=== PATIENT | male | born 1965 | race Caucasian/White ===

== ENCOUNTER 2016-08-18 23:10 | Emergency (ER) | payer MEDICARE ==
[~2016-08-18] VITALS: Ht 167.6 cm; Wt 67.0 kg
[~2016-08-18 23:10] MED LIST: IBUP600T26 PO; ROBA750T3 PO
[2016-08-18 23:15] VITALS: BP 144/85; PULSE 89; RESP 18; TEMP 98.2; O2SAT 99
[2016-08-18 23:25] VITALS: BP 133/85; PULSE 88; RESP 18
[2016-08-18] MEDS ORDERED: FLUTI110I INH (23:45)
[2016-08-18] MEDS ORDERED: VENTAER INH (23:45)
[2016-08-19] MEDS ORDERED: MOBI15TA PO (00:08)
[2016-08-19] MEDS ORDERED: ZOFR4TAB3 SL (00:08)
[2016-08-19] MEDS ORDERED: HYDR-3533 PO (00:08)
--- NOTE | 2016-08-19 00:11 | PD ---
HPI Chief Complaint: Musculoskeletal Complaint Time Seen by Provider: 23:43 Travel History International Travel<30 days: No Contact w/Intl Traveler<30days: No Traveled to known affect area: No History of Present Illness HPI The patient is a 50-year-old male that injured his shoulder several months ago. He has seen orthopedic physicians and has had an MRI that showed no rotator cuff tear and has been injected locally with steroids without relief. The patient comes in because he aggravated his shoulder changing a tire 4 days ago and continues to complain of pain in the right shoulder. The patient is disabled, he has Gaucher's disease. He takes Motrin but only 600 mg twice daily. He is starting to get nauseated and he thinks that might be the Motrin. 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) Cirrhosis: Yes Cerebrovascular Accident: Yes (2004) Tetanus Vaccination: < 5 Years Influenza Vaccination: No Past Surgical History Other Surgery: Yes (Splenectomy, carpal tunnel, fasciotomy, ulnar nerve "moved ", LH sx) Social History Alcohol Use: Yes (occassional) Tobacco Use: Yes (1 pack every 3 days) Substance Use: No Allergies-Medications (Allergen,Severity, Reaction): Coded Allergies: Aspirin (Verified Allergy, Severe, Bleeding, 08/18/16) Reported Meds & Prescriptions Reported Meds & Active Scripts Active Reported Flovent Hfa 12 GM Inh (Fluticasone Propionate) 110 Mcg/Act Inh 1 Puff INH BID Ventolin Hfa 18 GM Inh (Albuterol Sulfate) 90 Mcg/Act Aer 2 Puff INH Q4-6H PRN Review of Systems Except as stated in HPI: all other systems reviewed are Neg Physical Exam Narrative GENERAL: Well-nourished, well-developed patient. His vital signs show blood pressure 144/85 but otherwise normal. He smells of tobacco. SKIN: Focused skin assessment warm/dry. HEAD: Normocephalic. EYES: No scleral icterus. No injection or drainage. There are no yellow fatty deposits in his sclera. NECK: Supple, trachea midline. No JVD or lymphadenopathy. CARDIOVASCULAR: Regular rate and rhythm without murmurs, gallops, or rubs. RESPIRATORY: Breath sounds equal bilaterally. No accessory muscle use. GASTROINTESTINAL: Abdomen soft, non-tender, nondistended. MUSCULOSKELETAL: No cyanosis, or edema. There is tenderness over the anterior shoulder as well as lateral shoulder. He can abduct his shoulder to 80 and is limited thereafter by pain. There is no erythema over the shoulder. BACK: Nontender without obvious deformity. No CVA tenderness. Data Data Last Documented VS Vital Signs Date Time Temp Pulse Resp B/P Pulse Ox O2 Delivery O2 Flow Rate FiO2 08/18/16 23:25 88 18 133/85 08/18/16 23:15 98.2 99 MDM Medical Decision Making Medical Screen Exam Complete: Yes Emergency Medical Condition: Yes Medical Record Reviewed: Yes Differential Diagnosis Rotator cuff tearunlikely, bursitis, arthrosis right shoulder Narrative Course The patient likely has bursitis of the right shoulder. He is already been injected. He is not taking the Motrin as often as he should, possibly because of side effects of nausea. Plan: The patient will be given prescription for [place], Zofran and he is to rest the right shoulder. He is also given a prescription for Lortab 5 No. 20. His pain is becoming chronic pain and the number of Lortabs have to be limited. Diagnosis Primary Impression: Bursitis of right shoulder Additional Instructions: The Motrin may be making you nauseated. For this reason I will switch to Mobic 15 mg daily. Also, the Zofran is every 6 hours by mouth or under the tongue for nausea. Follow-up with orthopedics. Rest the right shoulder is much as possible. Also, discontinue smoking completely. Med/Other Pt SpecificInfo: Prescription(s) given Scripts Ondansetron Odt (Zofran Odt)4 Mg Tab4 Mg SL Q6HR PRN (Nausea/Vomiting) #30 TAB Ref 0 Prov:Cecilio Reagan MD 08/19/16 Hydrocodone-Acetaminophen (Lortab)5-325 Mg Tab1 Tab PO Q6H PRN (PAIN) #20 TAB Ref 0 Prov:Cecilio Reagan MD 08/19/16 Meloxicam (Mobic)15 Mg Tab15 Mg PO DAILY #30 TAB Ref 0 Prov:Cecilio Reagan MD 08/19/16 Disposition: 01 DISCHARGE HOME Condition: Stable Cecilio Reagan MD August 19, 2016 00:11
[2016-08-19] MEDS ORDERED: KETOROLAC TROMETHAMINE 60 MG/2 ML (IM) VIAL IM ONE (00:15)
== END 2016-08-19 00:31 | disposition home or self-care (01) ==
LOC: PHED 23:10
DX: M75.51 Bursitis of right shoulder (principal); K74.60 Unspecified cirrhosis of liver; F17.210 Nicotine dependence, cigarettes, uncomplicated; Z86.73 Personal history of transient ischemic attack (TIA), and cerebral infarction without residual deficits
CPT/HCPCS: 96372; 99283; J1885

== ENCOUNTER 2017-01-22 23:01 | Emergency (ER) | payer MEDICARE ==
[~2017-01-22] VITALS: Ht 170.2 cm; Wt 64.2 kg
[~2017-01-22 23:01] MED LIST changes: +FLUTI110I INH; +HYDR-3533 PO; -IBUP600T26 PO; +MOBI15TA PO; -ROBA750T3 PO; +VENTAER INH; +ZOFR4TAB3 SL
[2017-01-22 23:06] VITALS: BP 167/81; PULSE 96; RESP 16; TEMP 98.4; O2SAT 99
[2017-01-22] MEDS ORDERED: NORC5TAB PO (23:28)
[2017-01-22] MEDS ORDERED: IBUP400T20 PO (23:28)
--- NOTE | 2017-01-22 23:28 | PD ---
HPI Chief Complaint: Injury Time Seen by Provider: 23:12 Travel History International Travel<30 days: No Contact w/Intl Traveler<30days: No Traveled to known affect area: No History of Present Illness HPI the patient is a 51 year-old male who presents to the emergency department for right shoulder pain. The patient has a 1-2 year history of right shoulder pain and was followed by his orthopedic surgeon in [place]. However, the patient recently moved from [place] to the local area does not have a primary physician or orthopedic surgeon in the area. The patient states he has had a previous x-rays and MRI of the shoulder and was receiving cortisone injections by his orthopedic surgeon with minimal relief. The patient was also undergoing physical therapy, however, felt to physical therapy was worsening his symptoms. The patient states while he was coming to [place] he fell forward and grabbed his arm on a door. The patient states there was a pop and then he felt a pop "back". The pain is located over the right shoulder , worse with certain types of movement, but does not radiate down the arm. He denies any numbness or tingling of the right upper extremity. He is right-hand dominant. Symptoms are moderate, worse with movement, slightly alleviated at rest. 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) Cirrhosis: Yes Cerebrovascular Accident: Yes (2004) Past Surgical History Other Surgery: Yes (Splenectomy, carpal tunnel, fasciotomy, ulnar nerve "moved ", LH sx) Social History Alcohol Use: Yes (occassional) Tobacco Use: Yes (1 pack every 3 days) Substance Use: No Allergies-Medications (Allergen,Severity, Reaction): Coded Allergies: aspirin (Unverified Allergy, Severe, Bleeding, 11/20/16) Reported Meds & Prescriptions Reported Meds & Active Scripts Active Ibuprofen 400 Mg Tab 400 Mg PO Q6H PRN [place] (Hydrocodone-Acetaminophen) 5-325 mg Tab 1 Tab PO Q6H PRN Lortab (Hydrocodone-Acetaminophen) 5-325 Mg Tab 1 Tab PO Q6H PRN Mobic (Meloxicam) 15 Mg Tab 15 Mg PO DAILY Reported Flovent Hfa 12 GM Inh (Fluticasone Propionate) 110 Mcg/Act Inh 1 Puff INH BID Ventolin Hfa 18 GM Inh (Albuterol Sulfate) 90 Mcg/Act Aer 2 Puff INH Q4-6H PRN Review of Systems HENT: No: Neck Pain Musculoskeletal: Positive: Limited ROM, Edema (states that the right shoulder. Swollen when compared to the left), Pain Skin: No Rash Neurologic: No: Paresthesia, Sensory Disturbance Physical Exam Narrative GENERAL: Awake, alert, pleasant 51-year-old male who appears his stated age and is in no acute respiratory distress. SKIN: Focused skin assessment warm/dry. HEAD: Atraumatic. Normocephalic. NECK: Trachea midline. No JVD. No tenderness of the cervical vertebrae or paravertebral muscles. MUSCULOSKELETAL: No obvious deformities. The right shoulder has no obvious edema or swelling with compared to the left. No tenderness of the clavicles bilaterally, however, patient has tenderness of the right before meals joint as well as the anterior and posterior aspect just inferior to the before meals joint. Patient is able to abduct the right shoulder to 90 as well as extend the right arm and ended degrees, however, is able to raise his right arm above his head. He is able to fully flex and extend the right elbow as well as supinate and pronate the right forearm. Intrinsic hand muscles on the right are intact. Positive right radial pulse. NEUROLOGICAL: Awake and alert. No obvious cranial nerve deficits. Motor grossly within normal limits. Normal speech. Sensation is intact to the radial , median, and ulnar distribution of the right upper extremity. PSYCHIATRIC: Appropriate mood and affect; insight and judgment normal. Data Data Last Documented VS Vital Signs Date Time Temp Pulse Resp B/P (MAP) Pulse Ox O2 Delivery O2 Flow Rate FiO2 01/22/17 23:31 Room Air 01/22/17 23:06 98.4 96 16 167/81 (109) 99 Orders Orders Shoulder, Limited(2vws) (01/22/17 ) Ibuprofen (Advil) (01/22/17 23:30) Acetamin-Hydrocod 325-5 Mg ([place] 5-325 (01/22/17 23:30) MDM Medical Decision Making Medical Screen Exam Complete: Yes Emergency Medical Condition: Yes Medical Record Reviewed: Yes Interpretation(s) X-ray of the right shoulder reveals negative examination of the shoulder. Differential Diagnosis Differential diagnosis includes bursitis, AC joint separation, osteoarthritis, dislocation, fracture, contusion, hematoma, neuropathy. Narrative Course X-ray 2 view of the right shoulder was obtained. The patient was administered ibuprofen 400 mg orally and [place] 5 mg/325 mg orally for pain. X-rays unremarkable. The patient was advised to follow-up with orthopedics as he may benefit from continuing cortisone injections and/or physical therapy. He will be prescribed ibuprofen and a small course of [place], however, he is advised to follow-up with orthopedics or chronic pain management for continuing pain management. Diagnosis Primary Impression: Right shoulder pain Qualified Codes: M25.511 - Pain in right shoulder; G89.29 - Other chronic pain Referrals: Thanh Lee MD as needed Patient Instructions: General Instructions Additional Instructions: Medications as directed. Please provide the patient a copy of his x-ray results at discharge. Follow-up with orthopedics. He may benefit from outpatient cortisone injections and/or physical therapy. Activity as tolerated. Med/Other Pt SpecificInfo: Prescription(s) given Scripts Ibuprofen (Ibuprofen) 400 Mg Tab 400 MG PO Q6H Y for PAIN SCALE 1 TO 10, #20 TAB 0 Refills Prov: Andrew Cotter MD 01/22/17 Hydrocodone-Acetaminophen ([place]) 5-325 mg Tab 1 TAB PO Q6H Y for PAIN, #15 TAB 0 Refills Prov: Andrew Cotter MD 01/22/17 Disposition: 01 DISCHARGE HOME Condition: Stable Andrew Cotter MD Jan 22, 2017 23:28
[2017-01-22] MEDS ORDERED: IBUPROFEN 200 MG TAB PO ONE (23:30)
[2017-01-22] MEDS ORDERED: ACETAMINOPHEN/HYDROcodone 325 MG/5 MG TAB PO ONE (23:30)
--- NOTE | 2017-01-22 23:40 | RADRPT ---
EXAM DATE/TIME: 01/22/2017 23:26 [facility] COMPARISON: No previous studies available for comparison. INDICATIONS : Right shoulder pain from unknown injury. MEDICAL HISTORY : None. SURGICAL HISTORY : None. ENCOUNTER: Initial ACUITY: 1 day PAIN SCORE: 6/10 LOCATION: Right proximal shoulder. FINDINGS: Two view examination of the right shoulder demonstrates no evidence of fracture or dislocation. The glenohumeral and acromioclavicular joints are maintained. Bony mineralization is normal. CONCLUSION: 1. Negative examination of the shoulder. Shaji Arriaga MD on January 22, 2017 at 23:39 Board Certified Radiologist. This report was verified electronically.
[2017-01-23 00:10] VITALS: BP 150/70
== END 2017-01-23 00:14 | disposition home or self-care (01) ==
LOC: PHED 23:01
DX: M25.511 Pain in right shoulder (principal); K74.60 Unspecified cirrhosis of liver; Z86.73 Personal history of transient ischemic attack (TIA), and cerebral infarction without residual deficits; F17.200 Nicotine dependence, unspecified, uncomplicated; Z79.899 Other long term (current) drug therapy
CPT/HCPCS: 73030; 99283

== ENCOUNTER 2017-02-17 20:39 | Inpatient (IN) | payer MEDICARE ==
[~2017-02-17] VITALS: Ht 170.2 cm; Wt 63.0 kg
[~2017-02-17 20:39] MED LIST changes: +IBUP1TAB5 PO; +NORC5TAB PO; -ZOFR4TAB3 SL
[2017-02-17 20:49] VITALS: BP 140/65; PULSE 76; RESP 18; TEMP 98.1; O2SAT 100
[2017-02-17] MEDS ORDERED: SODIUM CHLOR 0.9% 1000 ML INJ 1,000 ML IV SCH (20:57)
[2017-02-17] MEDS ORDERED: SODIUM CHLORIDE 0.9% FLUSH 5 ML FLUSH IV FLUSH PRN (21:00)
[2017-02-17 21:03] VITALS: O2SAT 97
--- NOTE | 2017-02-17 21:04 | PD ---
HPI Chief Complaint: Altered Mental Status Time Seen by Provider: 20:46 Travel History International Travel<30 days: No Contact w/Intl Traveler<30days: No Traveled to known affect area: No History of Present Illness HPI The patient is a 51 year old male who presents to the [facility] emergency department with a history of altered mentation, noted by family members to be walking around the house undressed. According to ambulance services the patient has been altered since this morning. The patient reports that he did fall and hit his head. He is unsure whether he lost consciousness. He reports that he tripped and that is what caused the fall. The patient is oriented to person, place, time, and situation. The patient denies having any pain. The patient is drowsy on arrival. The patient's history is limited based on his drowsiness. The patient's electronic medical record was reviewed for his history. The patient denies having any chest pain, chest pressure, or shortness of breath. He denies having any neck pain. He denies having any vomiting or diarrhea. He denies drinking any alcohol. He reports that he smokes marijuana occasionally, however he denies smoking today. [facility] Past Medical History Narrative Medical The patient's past medical history according to the electronic medical record consists of arthritis, history of cirrhosis, according to the electronic medical record a prior history of stroke. 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 Eye Surgery: Yes (LEFT EYE SURGERY) Other Surgery: Yes (Splenectomy, carpal tunnel, fasciotomy, ulnar nerve "moved ", LH sx) Social History Alcohol Use: No Tobacco Use: Yes (one pack per day) Substance Use: Yes (marijuana occasionally) Allergies-Medications (Allergen,Severity, Reaction): Coded Allergies: aspirin (Unverified Allergy, Severe, Bleeding, 02/17/17) Reported Meds & Prescriptions Reported Meds & Active Scripts Active Ibuprofen 400 Mg Tab 400 Mg PO Q6H PRN [place] (Hydrocodone-Acetaminophen) 5-325 mg Tab 1 Tab PO Q6H PRN Mobic (Meloxicam) 15 Mg Tab 15 Mg PO DAILY Reported Flovent Hfa 12 GM Inh (Fluticasone Propionate) 110 Mcg/Act Inh 1 Puff INH BID Ventolin Hfa 18 GM Inh (Albuterol Sulfate) 90 Mcg/Act Aer 2 Puff INH Q4-6H PRN Review of Systems Except as stated in HPI: all other systems reviewed are Neg General / Constitutional: No: Fever Eyes: No: Visual changes HENT: No: Headaches, Neck Stiffness, Neck Pain Cardiovascular: No: Chest Pain or Discomfort Respiratory: No: Shortness of Breath Gastrointestinal: No: Nausea, Vomiting, Diarrhea, Abdominal Pain Genitourinary: No: Dysuria Musculoskeletal: No: Pain Skin: No Rash Neurologic: Positive: Change in Mentation, No: Weakness, Focal Abnormalities, Headache, Slurred Speech, Sensory Disturbance Psychiatric: No: Depression Endocrine: No: Polydipsia Hematologic/Lymphatic: No: Easy Bruising Physical Exam Narrative General: The patient is a well-developed well-nourished male in no acute distress. Head and Neck exam: Head is normocephalic atraumatic. Eyes: EOMI, pupils are equal round and reactive to light. Nose: Midline septum with pink mucous membranes Mouth: Dentition unremarkable. Moist mucus membranes. Posterior oropharynx is not erythematous. No tonsillar hypertrophy. Uvula midline. Airway patent. Neck: No palpable lymphadenopathy. No nuchal rigidity. No thyromegaly. Cardiovascular: Regular rate and rhythm without murmurs, gallops, or rubs. Lungs: Clear to auscultation bilaterally. No wheezes, rhonchi, or rales. Abdomen: Soft, with tenderness on palpation along the left side of the abdomen, left lower quadrant, no other tenderness on palpation of the other quadrants of the abdomen. No guarding, rebound, or rigidity. Normal bowel sounds are audible. No tenderness on palpation of McBurney's point. Negative Melissa sign. Extremities: No clubbing, cyanosis, or edema. 2+ pulses in all 4 extremities. No calf tenderness on palpation. Back: No spinous process tenderness to palpation. No costovertebral angle tenderness to palpation. Neurologic Exam: Cranial nerves 2-12 were intact on exam. Strength is 5/5 in all 4 extremities. No sensory deficits noted. Drowsy on examination. The patient is however arousable and oriented to person, place, time, and situation. No tremulousness. No asterixis. Skin Exam: No rash noted. Intact skin that is warm and dry. Data Data Last Documented VS Vital Signs Date Time Temp Pulse Resp B/P (MAP) Pulse Ox O2 Delivery O2 Flow Rate FiO2 02/17/17 21:03 97 Room Air 02/17/17 20:53 72 18 02/17/17 20:49 98.1 140/65 (90) Orders Orders Electrocardiogram (02/17/17 20:57) Ammonia (02/17/17 20:57) Complete Blood Count With Diff (02/17/17 20:57) Comprehensive Metabolic Panel (02/17/17 20:57) Creatine Kinase (Cpk) (02/17/17 20:57) Prothrombin Time / Inr (Pt) (02/17/17 20:57) Act Partial Throm Time (Ptt) (02/17/17 20:57) Troponin I (02/17/17 20:57) Thyroid Stimulating Hormone (02/17/17 20:57) Urinalysis - C+S If Indicated (02/17/17 20:57) Chest, Single Ap (02/17/17 20:57) Ct Brain W/O Iv Contrast(Rout) (02/17/17 20:57) Blood Glucose (02/17/17 20:57) Ecg Monitoring (02/17/17 20:57) Iv Access Insert/Monitor (02/17/17 20:57) Oximetry (02/17/17 20:57) Sodium Chloride 0.9% Flush (Ns Flush) (02/17/17 21:00) Sodium Chlor 0.9% 1000 Ml Inj (Ns 1000 M (02/17/17 20:57) Drug Screen, Random Urine (02/17/17 20:57) Alcohol (Ethanol) (02/17/17 20:57) Tylenol (Acetaminophen) (02/17/17 20:57) Salicylates (Aspirin) (02/17/17 20:57) Ct Cerv Spine W/O Contrast (02/17/17 ) Ct Abd/Pel W Iv Contrast(Rout) (02/17/17 21:04) Iohexol 350 Inj (Omnipaque 350 Inj) (02/17/17 23:00) Admit Order (Ed Use Only) (02/17/17 23:10) Labs Laboratory Tests Test 02/17/17 21:35 02/17/17 21:53 Blood Urea Nitrogen 15 MG/DL Creatinine 0.71 MG/DL Random Glucose 76 MG/DL Total Protein 7.9 GM/DL Albumin 2.7 GM/DL Calcium Level 8.5 MG/DL Alkaline Phosphatase 109 U/L Aspartate Amino Transf (AST/SGOT) 84 U/L Alanine Aminotransferase (ALT/SGPT) 50 U/L Total Bilirubin 2.2 MG/DL Sodium Level 139 MEQ/L Potassium Level 4.1 MEQ/L Chloride Level 110 MEQ/L Carbon Dioxide Level 20.8 MEQ/L Anion Gap 8 MEQ/L Estimat Glomerular Filtration Rate 118 ML/MIN Ammonia 92 MCMOL/L Total Creatine Kinase 142 U/L Troponin I LESS THAN 0.02 NG/ML Thyroid Stimulating Hormone 3rd Gen 1.160 uIU/ML Salicylates Level LESS THAN 1.7 MG/DL Acetaminophen Level LESS THAN 2.0 MCG/ML Ethyl Alcohol Level LESS THAN 3 MG/DL White Blood Count 9.1 TH/MM3 Red Blood Count 2.87 MIL/MM3 Hemoglobin 11.7 GM/DL Hematocrit 32.7 % Mean Corpuscular Volume 113.8 FL Mean Corpuscular Hemoglobin 40.7 PG Mean Corpuscular Hemoglobin Concent 35.8 % Red Cell Distribution Width 21.2 % Platelet Count 147 TH/MM3 Mean Platelet Volume 12.4 FL Neutrophils (%) (Auto) 36.1 % Lymphocytes (%) (Auto) 51.5 % Monocytes (%) (Auto) 8.9 % Eosinophils (%) (Auto) 1.4 % Basophils (%) (Auto) 2.1 % Neutrophils # (Auto) 3.3 TH/MM3 Lymphocytes # (Auto) 4.7 TH/MM3 Monocytes # (Auto) 0.8 TH/MM3 Eosinophils # (Auto) 0.1 TH/MM3 Basophils # (Auto) 0.2 TH/MM3 CBC Comment AUTO DIFF Differential Total Cells Counted 100 Neutrophils % (Manual) 50 % Lymphocytes % 40 % Monocytes % 8 % Eosinophils % 2 % Neutrophils # (Manual) 4.6 TH/MM3 Nucleated Red Blood Cells 7 /100 WBC Differential Comment FINAL DIFF MANUAL Platelet Morphology Comment ENLARGED Prothrombin Time 13.5 SEC Prothromb Time International Ratio 1.2 RATIO Activated Partial Thromboplast Time 31.7 SEC MDM Medical Decision Making Medical Screen Exam Complete: Yes Emergency Medical Condition: Yes Medical Record Reviewed: Yes Interpretation(s) Last Impressions Head CT 02/17/172056 Signed Impressions: Service Date/Time: Friday, February 17, 2017 22:53 - CONCLUSION: Normal examination. Gopi Reagan MD Chest X-Ray 02/17/172056 Signed Impressions: Service Date/Time: Friday, February 17, 2017 20:59 - CONCLUSION: Underinflation with interstitial opacities in lower lung zones which could represent atelectasis. Interstitial edema could have a similar appearance. Adi Carmen MD Differential Diagnosis Hepatic encephalopathy, versus substance induced altered mentation, versus other encephalopathy, versus intracranial abnormality Narrative Course During the course of the patients emergency department visit, the patients history, examination, and differential diagnosis were reviewed with the patient. The patient was placed on a school lunch monitor with oximetry and frequent blood pressure monitoring. The patient had IV access obtained and blood work sent for analysis. A chest x-ray, CT scan of the head and neck was ordered, CT scan of the abdomen and pelvis was ordered to evaluate for possible underlying trauma given his abdominal pain and reported fall. The patient had an ECG done on arrival that shows a sinus rhythm heart rate of 68, no acute ST segment elevation or depression. The patient was initially provided normal saline a at 125 mL/h. The patient's blood sugar prior to arrival was noted by ambulance services to reportedly be 76. The patients laboratory studies were reviewed and remarkable for a white count of 9.1, hemoglobin 11.7, platelets 47 with 51.5 segs, monocytes 8.9. CMP is remarkable for chloride of 110, CO2 20.8, AST 84, total bilirubin 2.2, ammonia level XCII, CPK 142, troponin I less than 0.02, albumin 2.7, TSH 1.16, PTT 13.5 , INR 1.2, PTT 31.7, alcohol level less than 3, acetaminophen less than 2, salicylate less than 1.7 Radiology studies were reviewed and remarkable for a chest x-ray that shows under inflation with interstitial opacities in the lower lung zones which could represent atelectasis. CT scan of the brain shows no acute abnormality. CT scan of the C-spine shows no acute abnormality. CT scan of the abdomen and pelvis shows extensive gastroesophageal varices status post splenectomy, solid organs are unremarkable, no evidence of bowel obstruction, kidneys enhance normally. The patient was given an initial dose of lactulose. The patients results were discussed with the patient, including the plan of care. I explained that further testing and/ or monitoring is indicated based on the patients history, examination, and/ or laboratory findings. Therefore, I recommended admission for additional evaluation. The patient expressed understanding and was agreeable with this plan. The patient was admitted to the hospital in stable condition and sent to a bed under the care of [facility]. Physician Communication Physician Communication The patient's case including history, pertinent physical examination findings, and laboratory studies were discussed with the residents on-call. It was agreed that the patient would be admitted to the [facility] service Diagnosis Primary Impression: Altered mental status Qualified Codes: R41.0 - Disorientation, unspecified Additional Impression: Hepatic encephalopathy Admitting Information Admitting Physician Requests: Admit Nuha Rosa MD Feb 17, 2017 21:04
--- NOTE | 2017-02-17 21:32 | RADRPT ---
EXAM DATE/TIME: 02/17/2017 20:59 [facility] COMPARISON: No previous studies available for comparison. INDICATIONS : AMS. MEDICAL HISTORY : Unobtainable. SURGICAL HISTORY : Unobtainable. ENCOUNTER: Initial ACUITY: 1 day PAIN SCORE: Non-responsive. LOCATION: Bilateral chest FINDINGS: Underinflated AP view of the chest demonstrates a normal-sized cardiac silhouette. Interstitial opaci ties in the lower lung zones bilaterally. No effusion or pneumothorax identified. Bones and soft tiss ues demonstrate no acute finding. EKG leads overlie the patient. CONCLUSION: Underinflation with interstitial opacities in lower lung zones which could represent atelectasis. Int erstitial edema could have a similar appearance. Adi Carmen MD on February 17, 2017 at 21:30 Board Certified Radiologist. This report was verified electronically.
[2017-02-17 22:05] LABS: ALT (GPT) 50 U/L (12-78)
[2017-02-17 22:08] LABS: ANION GAP 8 MEQ/L (5-15); AST (GOT) 84 U/L (15-37); BICARBONATE 20.8 MEQ/L (21.0-32.0); BLOOD UREA NITROGEN 15 MG/DL (7-18); CHLORIDE 110 MEQ/L (98-107); GLOMERULAR FILTRATION RATE 118 ML/MIN (>89); SODIUM (NA) 139 MEQ/L (136-145)
[2017-02-17 22:11] LABS: ACETAMINOPHEN LESS THAN 2.0 MCG/ML (10.0-30.0); ALCOHOL LESS THAN 3 MG/DL (0-5); POTASSIUM 4.1 MEQ/L (3.5-5.1)
[2017-02-17 22:16] LABS: ALKALINE PHOSPHATASE 109 U/L (45-117); CREATINE KINASE 142 U/L (39-308); TOTAL BILIRUBIN ADULT 2.2 MG/DL (0.2-1.0)
[2017-02-17 22:46] LABS: APTT (PATIENT) 31.7 SEC (24.3-30.1); INTERNATIONAL NORMALIZED RATIO 1.2 RATIO; PROTHROMBIN TIME - PATIENT 13.5 SEC (9.8-11.6)
[2017-02-17 22:51] LABS: AUTOMATED NEUTROPHIL # 3.3 TH/MM3 (1.8-7.7); BASOPHIL # 0.2 TH/MM3 (0-0.2); BASOPHIL % 2.1 % (0.0-2.0); EOSINOPHIL # 0.1 TH/MM3 (0-0.4); EOSINOPHIL % 1.4 % (0.0-4.0); HEMATOCRIT 32.7 % (39.0-51.0); HEMO FLAGS AUTO DIFF; LYMPH % 51.5 % (9.0-44.0); LYMPHOCYTE # 4.7 TH/MM3 (1.0-4.8); MEAN CELL VOLUME 113.8 FL (80.0-100.0); MEAN CORPUSCULAR HEMOGLOBIN 40.7 PG (27.0-34.0); MEAN CORPUSCULAR HGB CONC 35.8 % (32.0-36.0); MONO % 8.9 % (0.0-8.0); NEUT % 36.1 % (16.0-70.0); PLATELET COUNT 147 TH/MM3 (150-450); RED BLOOD COUNT 2.87 MIL/MM3 (4.50-5.90); RED CELL DISTRIBUTION WIDTH 21.2 % (11.6-17.2); WHITE BLOOD COUNT 9.1 TH/MM3 (4.0-11.0)
[2017-02-17] MEDS ORDERED: IOHEXOL 350 MG/ML 10 ML VIAL (for RAD DIAG) IVCONTRAST ONE (23:00)
--- NOTE | 2017-02-17 23:03 | RADRPT ---
EXAM DATE/TIME: 02/17/2017 22:53 [facility] COMPARISON: No previous studies available for comparison. INDICATIONS : Fall yesterday. Altered mental status since. RADIATION DOSE: 43.57 CTDIvol (mGy) MEDICAL HISTORY : Cirrhosis. CVA. SURGICAL HISTORY : Splenectomy. ENCOUNTER: Initial ACUITY: 1 day PAIN SCALE: 0/10 LOCATION: cranial TECHNIQUE: Multiple contiguous axial images were obtained of the head. Using automated exposure control and adj ustment of the mA and/or kV according to patient size, radiation dose was kept as low as reasonably a chievable to obtain optimal diagnostic quality images. DICOM format image data is available electro nically for review and comparison. FINDINGS: CEREBRUM: The ventricles are normal for age. No evidence of midline shift, mass lesion, hemorrhage or acute in farction. No extra-axial fluid collections are seen. POSTERIOR FOSSA: The cerebellum and brainstem are intact. The 4th ventricle is midline. The cerebellopontine angle i s unremarkable. EXTRACRANIAL: The visualized portion of the orbits is intact. SKULL: The calvaria is intact. No evidence of skull fracture. CONCLUSION: Normal examination. Gopi Reagan MD on February 17, 2017 at 23:01 Board Certified Radiologist. This report was verified electronically.
--- NOTE | 2017-02-17 23:11 | RADRPT ---
EXAM DATE/TIME: 02/17/2017 22:53 [facility] COMPARISON: No previous studies available for comparison. INDICATIONS : Fall yesterday. RADIATION DOSE: 21.49 CTDIvol (mGy) MEDICAL HISTORY : Cirrhosis. CVA. SURGICAL HISTORY : Splenectomy. ENCOUNTER: Initial ACUITY: 1 day PAIN SCALE: 0/10 LOCATION: neck TECHNIQUE: Volumetric scanning of the cervical spine was performed. Multiplanar reconstructions in the sagittal, coronal and oblique axial planes were performed. Using automated exposure control and adjustment o f the mA and/or kV according to patient size, radiation dose was kept as low as reasonably achievable to obtain optimal diagnostic quality images. DICOM format image data is available electronically f or review and comparison. FINDINGS: VERTEBRAE: Normal vertebral body height. Suspected hemangioma in C7 ALIGNMENT: No evidence of subluxation. C2-C3: The bony spinal canal is normal in size. No evidence of disc bulge or herniation. The neural forami na are bilaterally patent. C3-C4: The bony spinal canal is normal in size. No evidence of disc bulge or herniation. The neural forami na are bilaterally patent. C4-C5: The bony spinal canal is normal in size. No evidence of disc bulge or herniation. The neural forami na are bilaterally patent. C5-C6: The bony spinal canal is normal in size. No evidence of disc bulge or herniation. The neural forami na are bilaterally patent. C6-C7: The bony spinal canal is normal in size. No evidence of disc bulge or herniation. The neural forami na are bilaterally patent. C7-T1: The bony spinal canal is normal in size. No evidence of disc bulge or herniation. The neural forami na are bilaterally patent. CONCLUSION: Normal examination. Gopi Reagan MD on February 17, 2017 at 23:09 Board Certified Radiologist. This report was verified electronically.
--- NOTE | 2017-02-17 23:17 | RADRPT ---
EXAM DATE/TIME: 02/17/2017 22:59 [facility] COMPARISON: No previous studies available for comparison. INDICATIONS : Abdominal pain. IV CONTRAST: 90 cc Omnipaque 350 (iohexol) IV ORAL CONTRAST: No oral contrast ingested. RADIATION DOSE: 5.09 CTDIvol (mGy) MEDICAL HISTORY : Cirrhosis. CVA. SURGICAL HISTORY : Splenectomy. ENCOUNTER: Initial ACUITY: 1 day PAIN SCALE: 4/10 LOCATION: Bilateral abdomen TECHNIQUE: Volumetric scanning of the abdomen and pelvis was performed. Using automated exposure control and ad justment of the mA and/or kV according to patient size, radiation dose was kept as low as reasonably achievable to obtain optimal diagnostic quality images. DICOM format image data is available electro nically for review and comparison. FINDINGS: LOWER LUNGS: The visualized lower lungs are clear. LIVER: Homogeneous density without lesion. There is no dilation of the biliary tree. No calcified gallston es. SPLEEN: Surgically absent. PANCREAS: Within normal limits. KIDNEYS: Normal in size and shape. There is no mass, stone or hydronephrosis. ADRENAL GLANDS: Within normal limits. VASCULAR: There is no aortic aneurysm. BOWEL/MESENTERY: Extensive gastroesophageal varices . The stomach, small bowel, and colon demonstrate no acute abnorm ality. There is no free intraperitoneal air or fluid. ABDOMINAL WALL: Within normal limits. RETROPERITONEUM: There is no lymphadenopathy. BLADDER: No wall thickening or mass. REPRODUCTIVE: Within normal limits. INGUINAL: There is no lymphadenopathy or hernia. MUSCULOSKELETAL: Within normal limits for patient age. CONCLUSION: Extensive gastroesophageal varices , status post splenectomy. The solid organs are unremarkable. No evidence of bowel obstruction. Kidneys enhance normally. Gopi Reagan MD on February 17, 2017 at 23:13 Board Certified Radiologist. This report was verified electronically.
[2017-02-17 23:23] LABS: CORRECTED NUCLEATED RBC 7 /100 WBC (0-0); EOSINOPHILS 2 % (0-4); NEUTROPHIL # MANUAL DIFF 4.6 TH/MM3 (1.8-7.7); POLYS (SEG NEUTROPHILS) 50 % (16-70); WBC DIFF SAMPLE 100
[2017-02-17 23:24] LABS: PLATELET MORPHOLOGY ENLARGED (NORMAL); SCAN/DIFF FINAL DIFF MANUAL
[2017-02-18] VITALS (7 sets, daily range): BP systolic 103–155; BP diastolic 58–82; PULSE 66–75; RESP 15–18; TEMP 96.9–99.2; O2SAT 94–100
--- NOTE | 2017-02-18 00:08 | HHI.HP ---
HPI Service Family Medicine Primary Care Physician Unknown Admission Diagnosis AMS, Hepatic encephalopathy Diagnoses: International Travel<30 Days: No Contact w/Intl Traveler<30days: No History of Present Illness 51-year-old male with past medical history of Gaucher disease presenting with altered mental status today as well as mild nausea and 1 episode of nonbloody, nonbilious emesis. According to patient and sister who is at bedside, altered mental status started earlier this morning, but sister was first notified by their father at 4 PM today after the patient started taking off his clothes and running around the house. During this episode he had a controlled fall to the ground, denies hitting his head. He had to be brought in by eval, at which time he was restrained due to agitation. On our arrival, he reports feeling much better and back to his baseline. He has no prior psychiatric history, and denies recent illicit substance use. Abdomen point during the interview, he reported a heavy drinking history of about a fifth of liquor one day per week as well as a quart of beer a day, however later during the interview he clarified that this was a long time ago and that he hasn't had a drink in 6 years. He has been very anxious recently due to a in the family of his 3- year-old granddaughter due to cancer. He denies SI or a plan, and he has never attempted suicide. Denies AVH, delusions, or history of psychosis/schizophrenia/ bipolar disorder. (Jamison Woodson MD R2) Review of Systems Constitutional: DENIES: Fatigue, Fever, Chills Endocrine: DENIES: Heat/cold intolerance Eyes: DENIES: Eye inflammation, Eye pain, Photosensitivity Ears, nose, mouth, throat: DENIES: Ear Pain Respiratory: DENIES: Cough, Wheezing, Shortness of breath Cardiovascular: DENIES: Chest pain, Dyspnea on Exertion Gastrointestinal: COMPLAINS OF: Nausea, Vomiting, DENIES: Abdominal pain, Black stools, Bloody stools, Constipation, Diarrhea Genitourinary: DENIES: Urinary frequency, Dysuria Musculoskeletal: DENIES: Joint pain, Muscle aches Integumentary: DENIES: Rash Hematologic/lymphatic: DENIES: Bruising Neurologic: DENIES: Abnormal gait, Headache, Paresthesias, Seizures, Speech Problems Psychiatric: COMPLAINS OF: Anxiety, Depression, Agitation, DENIES: Hallucinations, Suicidal Ideation, Homicidal Ideation, Delusions (Jamison Woodson MD R2) Past Family Social History Past Medical History Gaucher Disease Past Surgical History Splenectomy (Jamison Woodson MD R2) Allergies: Coded Allergies: aspirin (Unverified Allergy, Severe, Bleeding, 02/17/17) Family History Mother was alcoholic No psychiatric disorders that run in family (besides substance abuse) Social History Alcohol: See HPI Tobacco: 1/2 PPD (cut back from 1-2 PPD since age 12 or so) Drugs: Smokes marijuana daily; denies other substance use (Jamison Woodson MD R2) Physical Exam Vital Signs Vital Signs Date Time Temp Pulse Resp B/P (MAP) Pulse Ox O2 Delivery O2 Flow Rate FiO2 02/17/17 21:03 97 Room Air 02/17/17 20:53 72 18 100 Room Air 02/17/17 20:49 98.1 76 18 140/65 (90) 100 Physical Exam GENERAL: WDWN slightly dishevelled adult white male lying in bed in NAD SKIN: No rashes, ecchymoses or lesions. Cool and dry. HEAD: NC/AT EYES: PERRL. EOMI. No conjunctival injection or drainage. ENT: MMM, OP without erythema, tonsillar swelling, or exudate. NECK: Supple, no lymphadenopathy. CARDIOVASCULAR: NRRR. Normal S1/S2. No MRG RESPIRATORY: CTAB. No crackles or wheezes. GASTROINTESTINAL: Abdomen soft, non-distended, non-tender. No hepato- splenomegaly or palpable masses. MUSCULOSKELETAL: Extremities without clubbing, cyanosis, or edema. NEUROLOGICAL: Awake and alert. Cranial nerves II through XII grossly intact. Moves all extremities without difficulty. Normal speech. MSE: Mood depressed. Affect mildly hyperactive. Thought process linear and goal directed. Thought content normal. No SI/HI, no AVH, no apparent delusions. Speech normal rate, mild paucity, volume appropriate. Appears mildly dishevelled. Laboratory Laboratory Tests Test 02/17/17 21:35 02/17/17 21:53 Blood Urea Nitrogen 15 Creatinine 0.71 Random Glucose 76 Total Protein 7.9 Albumin 2.7 Calcium Level 8.5 Alkaline Phosphatase 109 Aspartate Amino Transf (AST/SGOT) 84 Alanine Aminotransferase (ALT/SGPT) 50 Total Bilirubin 2.2 Sodium Level 139 Potassium Level 4.1 Chloride Level 110 Carbon Dioxide Level 20.8 Anion Gap 8 Estimat Glomerular Filtration Rate 118 Ammonia 92 Total Creatine Kinase 142 Troponin I LESS THAN 0.02 Thyroid Stimulating Hormone 3rd Gen 1.160 Salicylates Level LESS THAN 1.7 Acetaminophen Level LESS THAN 2.0 Ethyl Alcohol Level LESS THAN 3 White Blood Count 9.1 Red Blood Count 2.87 Hemoglobin 11.7 Hematocrit 32.7 Mean Corpuscular Volume 113.8 Mean Corpuscular Hemoglobin 40.7 Mean Corpuscular Hemoglobin Concent 35.8 Red Cell Distribution Width 21.2 Platelet Count 147 Mean Platelet Volume 12.4 Neutrophils (%) (Auto) 36.1 Lymphocytes (%) (Auto) 51.5 Monocytes (%) (Auto) 8.9 Eosinophils (%) (Auto) 1.4 Basophils (%) (Auto) 2.1 Neutrophils # (Auto) 3.3 Lymphocytes # (Auto) 4.7 Monocytes # (Auto) 0.8 Eosinophils # (Auto) 0.1 Basophils # (Auto) 0.2 CBC Comment AUTO DIFF Differential Total Cells Counted 100 Neutrophils % (Manual) 50 Lymphocytes % 40 Monocytes % 8 Eosinophils % 2 Neutrophils # (Manual) 4.6 Nucleated Red Blood Cells 7 Differential Comment FINAL DIFF MANUAL Platelet Morphology Comment ENLARGED Prothrombin Time 13.5 Prothromb Time International Ratio 1.2 Activated Partial Thromboplast Time 31.7 (Jamison Woodson MD R2) Result Diagram: 02/[id number] Imaging Last Impressions Abdomen/Pelvis CT 02/17/[id number] Signed Impressions: Service Date/Time: Friday, February 17, 2017 22:59 - CONCLUSION: Extensive gastroesophageal varices , status post splenectomy. The solid organs are unremarkable. No evidence of bowel obstruction. Kidneys enhance normally. Gopi Reagan MD Head CT 02/17/[id number] Signed Impressions: Service Date/Time: Friday, February 17, 2017 22:53 - CONCLUSION: Normal examination. Gopi Reagan MD Chest X-Ray 02/17/172056 Signed Impressions: Service Date/Time: Friday, February 17, 2017 20:59 - CONCLUSION: Underinflation with interstitial opacities in lower lung zones which could represent atelectasis. Interstitial edema could have a similar appearance. Adi Carmen MD Cervical Spine CT 02/17/17 0000 Signed Impressions: Service Date/Time: Friday, February 17, 2017 22:53 - CONCLUSION: Normal examination. Gopi Reagan MD (Jamison Woodson MD R2) Arlene VTE Risk Assessment Arlene VTE Risk Assessment: No/Low Risk (score <= 1) (Jamison Woodson MD R2) Assessment and Plan Assessment and Plan 51 yo male with h/o Gaucher Disease presenting with: (Jamison Woodson MD R2) Attending Attestation THIS CASE WAS DISCUSSED WITH THE RESIDENT PHYSICIANS. I HAVE REVIEWED THE RECORD AND AGREE WITH THE ABOVE NOTE AND PLAN OF CARE WAS DISCUSSED. I HAVE AUTHORIZED THE ORDER FOR ADMISSION TO AN IN-PATIENT STATUS. On exam patient with some asterixis bilateral, ammonia level is increased from overnight admission. His AMS appears to be related to hepatic encephalopathy but also consider this may be ETOH induced or from Gaucher disease as well. Check some more labs. Start on lactulose. Since the imaging revealed esophageal varices will also start on propranolol and US the liver. Consult GI for assistance with workup and treatment at this time. Residents will attempt to reach family members for further clarification of health and disease status as the patient is somewhat very poor historian. Patient reports has been on Cerezyme for his Gaucher disease in the past but no current therapy. Will defer to GI for now to see what their evaluation is of the patient and continue workup. (Nika Mejia MD) Problem List: (1) Altered mental status ICD Codes: R41.82 - Altered mental status, unspecified Status: Resolved Plan: Disorientation by history and ED/EVAC report, now resolved on admitting team arrival A/w some nausea and [address] abdomen/pelvis without evidence of acute pathology (see above), but does show extensive varices which may be indicative of either Gaucher disease or chronic alcohol use Troponin < 0.02 EKG normal sinus rhythm with no ST-T wave changes CBC with mild anemia and thrombocytopenia c/w known Gaucher disease Ammonia level 93 TSH wnl Alcohol, tylenol, and salicylate levels normal UDS, UA pending Reported h/o fall, exam benign, CT head negative for bleeding - Place in observation - Vitals Q4H - Offered psychiatry consult (had been seeing psychiatrist in [facility]), patient declined, and in any case does not currently meet criteria for [place] or inpatient psychiatric admission. Continue to monitor - Repeat ammonia level in AM (could be related to underlying Gaucher disease) - CIWA assessment scoring per protocol; will order meds if scores indicative of withdrawal though unlikely this episode was due to intoxication given low blood alcohol level - F/u UDS, UA - Home tomorrow if mental status continues to be stable and ammonia level stable (2) Gaucher disease ICD Codes: E75.22 - Gaucher disease Status: Chronic Plan: Reported h/o Gaucher disease, labs support this with mild anemia, thrombocytopenia - Repeat CBC, CMP in morning (3) FEN/PPX Plan: Fluids: Tolerating PO Elecs: Monitor, replete PRN Nutrition: Diet regular basic DVT: Not indicated given low risk Code status: FULL CODE (Jamison Woodson MD R2) Problem Qualifiers (1) Altered mental status: Qualified Codes: R41.0 - Disorientation, unspecified Jamison Woodson MD R2 Feb 18, 2017 00:08 Nika Mejia MD Feb 18, 2017 14:42
[2017-02-18] MEDS ORDERED: SODIUM CHLORIDE 0.9% FLUSH 10 ML FLUSH IV FLUSH PRN (00:15)
[2017-02-18] MEDS ORDERED: LACTULOSE SYRUP 20 GM/30 ML CUP PO PRN (00:15)
[2017-02-18] MEDS ORDERED: BISACODYL 10 MG SUPP RECTAL PRN (00:15)
[2017-02-18] MEDS ORDERED: MAGNESIUM HYDROXIDE SUSP 30 ML CUP PO PRN (00:15)
[2017-02-18] MEDS ORDERED: NALOXONE HCL 0.4 MG/ML AMP IV PUSH PRN (00:15)
[2017-02-18] MEDS ORDERED: SENNOSIDES 8.6 MG TAB PO PRN (00:15)
[2017-02-18 06:45] LABS: ALKALINE PHOSPHATASE 107 U/L (45-117); ALT (GPT) 47 U/L (12-78)
[2017-02-18 06:54] LABS: ANION GAP 9 MEQ/L (5-15); AST (GOT) 73 U/L (15-37); AUTOMATED NEUTROPHIL # 3.3 TH/MM3 (1.8-7.7); BASOPHIL # 0.1 TH/MM3 (0-0.2); BASOPHIL % 1.1 % (0.0-2.0); BICARBONATE 21.7 MEQ/L (21.0-32.0); CHLORIDE 110 MEQ/L (98-107); EOSINOPHIL # 0.2 TH/MM3 (0-0.4); EOSINOPHIL % 1.7 % (0.0-4.0); GLOMERULAR FILTRATION RATE 135 ML/MIN (>89); HEMATOCRIT 28.8 % (39.0-51.0); LYMPHOCYTE # 5.7 TH/MM3 (1.0-4.8); MEAN CELL VOLUME 113.8 FL (80.0-100.0); MEAN CORPUSCULAR HEMOGLOBIN 41.4 PG (27.0-34.0); MONO % 8.9 % (0.0-8.0); NEUT % 32.3 % (16.0-70.0); PLATELET COUNT 57 TH/MM3 (150-450); POTASSIUM 3.7 MEQ/L (3.5-5.1); RED BLOOD COUNT 2.53 MIL/MM3 (4.50-5.90); RED CELL DISTRIBUTION WIDTH 21.2 % (11.6-17.2); SODIUM (NA) 141 MEQ/L (136-145); WHITE BLOOD COUNT 10.2 TH/MM3 (4.0-11.0)
[2017-02-18 06:59] LABS: BLOOD UREA NITROGEN 17 MG/DL (7-18)
[2017-02-18 08:13] LABS: MEAN CORPUSCULAR HGB CONC 36.4 % (32.0-36.0)
[2017-02-18 08:15] LABS: HEMO FLAGS AUTO DIFF
[2017-02-18] MEDS: DOCUSATE SODIUM 50 MG/SENNA 8.6 MG TAB PO SCH ×2 (08:43→21:00)
[2017-02-18] MEDS: SODIUM CHLORIDE 0.9% FLUSH 10 ML FLUSH IV FLUSH SCH ×2 (08:43→22:28)
[2017-02-18 09:21] LABS: BASOPHILS 2 % (0-2); CORRECTED NUCLEATED RBC 10 /100 WBC (0-0); EOSINOPHILS 3 % (0-4); NEUTROPHIL # MANUAL DIFF 3.2 TH/MM3 (1.8-7.7); POLYS (SEG NEUTROPHILS) 31 % (16-70); WBC DIFF SAMPLE 100
[2017-02-18 09:34] LABS: TARGET CELLS 1+ (NORMAL)
[2017-02-18 09:35] LABS: ACANTHOCYTES OCC (NORMAL); HOWELL-JOLLY BODIES PRESENT (NONE SEEN)
[2017-02-18 09:37] LABS: SCAN/DIFF FINAL DIFF MANUAL
[2017-02-18] MEDS ORDERED: LACTULOSE SYRUP 20 GM/30 ML CUP PO SCH ×2 (15:00→21:00)
[2017-02-18] MEDS: PROPRANOLOL HCL 20 MG TAB PO SCH ×2 (15:16→22:28)
[2017-02-18 16:30] LABS: BLOOD, URINE NEG (NEG); GLUCOSE,URINE NEG (NEG); KETONE, URINE NEG (NEG); MUCUS URINE FEW /lpf (OCC); NITRITE,URINE NEG (NEG); SQUAMOUS EPITHELIAL CELL URINE <1 /hpf (0-5); URINE COLOR DARK-YELLOW (YELLW/STRAW)
[2017-02-18 16:46] LABS: COMMENT (UR) CATH-CULT NOT IND; CULTURE IF INDICATED CATH CULTURE NOT IND
--- NOTE | 2017-02-18 17:36 | PD.CONS ---
HPI History of Present Illness This is a 51 year old male with cirrhosis, Gaucher's disease who according to pt presented after a "fall." Per EMR he was having AMS, running around his house sans clothing, and brought by evac. He denies any GI symptoms including abd pain, n/v, jaundice, black tarry stool, blood in stool, weight loss. Lat colonoscopy 5-6y in [place], last EGD in 2005 found reflux; he can recall no further details on these procedures. "I hold the world record for largest spleen, 15lbs." He says he was diagnosed with cirrhosis by a emotional disabilities teacher. Denies etoh consumption, says he used to drink more years ago and will not elaborate. Per EMR he told resident that he drinks 1/5th liquor weekly along with a quart of beer, then retracted statement and said he had quit drinking. CT showed he has varices. (Jenn Adair) PFSH Past Medical History Gaucher's GERD cirrhosis Past Surgical History splenectomy ulnar compartment (Jenn Adair) Coded Allergies: aspirin (Unverified Allergy, Severe, Bleeding, 02/17/17) Family History denies Social History no etoh, smokes 1/2ppd, occasional marijuana (Jenn Adair) Review of Systems Constitutional: DENIES: Weight loss Eyes: DENIES: Blurred vision Ears, nose, mouth, throat: DENIES: Hearing loss Respiratory: DENIES: Wheezing Cardiovascular: DENIES: Chest pain Gastrointestinal: COMPLAINS OF: Heartburn, DENIES: Abdominal pain, Black stools , Bloody stools, Constipation, Diarrhea, Nausea, Vomiting, Hematemesis Genitourinary: DENIES: Hematuria Musculoskeletal: DENIES: Joint Swelling Integumentary: DENIES: Jaundice Hematologic/lymphatic: DENIES: Bruising Neurologic: DENIES: Abnormal gait Psychiatric: COMPLAINS OF: Confusion (Jenn Adair) GI Exam Vitals I&O Vital Signs Date Time Temp Pulse Resp B/P (MAP) Pulse Ox O2 Delivery O2 Flow Rate FiO2 02/18/17 16:00 96.9 67 18 140/82 (101) 97 02/18/17 12:00 98.4 72 17 155/79 (104) 94 02/18/17 08:00 99.2 72 17 118/69 (85) 96 11/13/17 04:50 97.2 75 16 103/58 (73) 96 02/18/17 01:10 97.5 66 16 139/80 (99) 98 02/18/17 01:07 02/18/17 00:53 72 18 128/65 (86) 100 Room Air 02/17/17 21:03 97 Room Air 02/17/17 20:53 72 18 100 Room Air 02/17/17 20:49 98.1 76 18 140/65 (90) 100 I/O 02/17/17 02/17/17 02/17/17 02/18/17 02/18/17 02/18/17 07:00 15:00 23:00 07:00 15:00 23:00 Intake Total 240 ml 533 ml Balance 240 ml 533 ml Intake Oral 240 ml 360 ml IV Total 173 ml # Voids 1 1 # Bowel Movements 0 0 Laboratory Test 02/17/17 21:35 02/17/17 21:53 02/18/17 05:37 02/18/17 14:52 Blood Urea Nitrogen 15 MG/DL 17 MG/DL Creatinine 0.71 MG/DL 0.63 MG/DL Random Glucose 76 MG/DL 97 MG/DL Total Protein 7.9 GM/DL 7.4 GM/DL Albumin 2.7 GM/DL 2.4 GM/DL Calcium Level 8.5 MG/DL 8.2 MG/DL Alkaline Phosphatase 109 U/L 107 U/L Aspartate Amino Transf (AST/SGOT) 84 U/L 73 U/L Alanine Aminotransferase (ALT/SGPT) 50 U/L 47 U/L Total Bilirubin 2.2 MG/DL 2.0 MG/DL Sodium Level 139 MEQ/L 141 MEQ/L Potassium Level 4.1 MEQ/L 3.7 MEQ/L Chloride Level 110 MEQ/L 110 MEQ/L Carbon Dioxide Level 20.8 MEQ/L 21.7 MEQ/L Anion Gap 8 MEQ/L 9 MEQ/L Estimat Glomerular Filtration Rate 118 ML/MIN 135 ML/MIN Ammonia 92 MCMOL/L 164 MCMOL/L Total Creatine Kinase 142 U/L Troponin I LESS THAN 0.02 NG/ML Thyroid Stimulating Hormone 3rd Gen 1.160 uIU/ML Salicylates Level LESS THAN 1.7 MG/DL Acetaminophen Level LESS THAN 2.0 MCG/ML Ethyl Alcohol Level LESS THAN 3 MG/DL White Blood Count 9.1 TH/MM3 10.2 TH/MM3 Red Blood Count 2.87 MIL/MM3 2.53 MIL/MM3 Hemoglobin 11.7 GM/DL 10.5 GM/DL Hematocrit 32.7 % 28.8 % Mean Corpuscular Volume 113.8 FL 113.8 FL Mean Corpuscular Hemoglobin 40.7 PG 41.4 PG Mean Corpuscular Hemoglobin Concent 35.8 % 36.4 % Red Cell Distribution Width 21.2 % 21.2 % Platelet Count 147 TH/MM3 57 TH/MM3 Mean Platelet Volume 12.4 FL 11.5 FL Neutrophils (%) (Auto) 36.1 % 32.3 % Lymphocytes (%) (Auto) 51.5 % 56.0 % Monocytes (%) (Auto) 8.9 % 8.9 % Eosinophils (%) (Auto) 1.4 % 1.7 % Basophils (%) (Auto) 2.1 % 1.1 % Neutrophils # (Auto) 3.3 TH/MM3 3.3 TH/MM3 Lymphocytes # (Auto) 4.7 TH/MM3 5.7 TH/MM3 Monocytes # (Auto) 0.8 TH/MM3 0.9 TH/MM3 Eosinophils # (Auto) 0.1 TH/MM3 0.2 TH/MM3 Basophils # (Auto) 0.2 TH/MM3 0.1 TH/MM3 CBC Comment AUTO DIFF AUTO DIFF Differential Total Cells Counted 100 100 Neutrophils % (Manual) 50 % 31 % Lymphocytes % 40 % 58 % Monocytes % 8 % 6 % Eosinophils % 2 % 3 % Neutrophils # (Manual) 4.6 TH/MM3 3.2 TH/MM3 Nucleated Red Blood Cells 7 /100 WBC 10 /100 WBC Differential Comment FINAL DIFF MANUAL FINAL DIFF MANUAL Platelet Morphology Comment ENLARGED Prothrombin Time 13.5 SEC Prothromb Time International Ratio 1.2 RATIO Activated Partial Thromboplast Time 31.7 SEC Basophils % 2 % Target Cells 1+ [place] Bodies PRESENT Acanthocytes OCC Red Cell Morphology Comment Test 02/18/17 15:45 Urine Color DARK-YELLOW Urine Turbidity CLEAR Urine pH 6.0 Urine Specific [place] 1.038 Urine Protein TRACE mg/dL Urine Glucose (UA) NEG mg/dL Urine Ketones NEG mg/dL Urine Occult Blood NEG Urine Nitrite NEG Urine Bilirubin NEG Urine Urobilinogen GREATER THAN 12.0 MG/DL Urine Leukocyte Esterase TRACE Urine RBC 1 /hpf Urine WBC 2 /hpf Urine Squamous Epithelial Cells <1 /hpf Urine Amorphous Sediment RARE Urine Mucus FEW /lpf Microscopic Urinalysis Comment CATH-CULT NOT IND Urine Opiates Screen NEG Urine Barbiturates Screen NEG Urine Amphetamines Screen NEG Urine Benzodiazepines Screen NEG Urine Cocaine Screen NEG Urine Cannabinoids Screen POS Physical Examination HEENT: PERRL; normocephalic; atraumatic; no jaundice. CHEST: wheezes CARDIAC: RRR ABDOMEN: Soft, nondistended, nontender; no hepatosplenomegaly; bowel sounds are present in all four quadrants. scar midline EXTREMITIES: No clubbing, cyanosis, or edema. SKIN: Normal; no rash; no jaundice. REIKI PRACTITIONER: lethargic (Jenn Adair) Assessment and Plan Plan ASSESSMENT - abnormal CT finding - CT shows extensive gastroesophageal varices. hx Gaucher 's. ?cirrhosis INR 1.2, albumin 2.4 - anemia - macrocytic no obvious bleeding ?cirrhosis, Gaucher's - thrombocytopenia - PLT considerable drop from yesterday - elevated ammonia, AST, Tbil - cirrhosis 2/2 ETOH vs Gaucher's. questionable ETOH consumption. pt presented with AMS, elevated NH which has gone up. ultrasound pending. will get liver w/u r/o other cause elev LFTs PLAN - lactulose TID - liver w/u - monitor labs - further recs to follow This pt seen by myself and Dr Rosales and this note is written on his behalf (Jenn Adair) Physician Comments Patient seen and examined Agree with above Continue with current supportive care Monitor labs We will also plan for an EGD tomorrow to further evaluate the esophageal varices noted on CT (Deandre Rosales MD) Jenn Adair Feb 18, 2017 17:36 Deandre Rosales MD Feb 18, 2017 21:05
[2017-02-18] MEDS: LACTULOSE SYRUP 20 GM/30 ML CUP PO SCH (18:00)
--- NOTE | 2017-02-18 18:10 | RADRPT ---
EXAM DATE/TIME: 02/18/2017 17:22 [facility] COMPARISON: CT ABDOMEN & PELVIS W CONTRAST, February 17, 2017, 22:59. INDICATIONS : Portal hypertension. MEDICAL HISTORY : Cirrhosis. Cerebrovascular accident. Arthritis. Gout. Depression. Anxiety. Left eye cancer. SURGICAL HISTORY : Splenectomy. Fasciotomy. Carpal tunnel repair. Right eye surgery. ENCOUNTER: Initial ACUITY: 1 day PAIN SCORE: 0/10 LOCATION: Bilateral upper quadrant MEASUREMENTS: LIVER: 19.0 cm length COMMON DUCT: 12 mm RIGHT KIDNEY: 14.1 x 5.9 x 5.0 cm SPLEEN: NOT VISUALIZED FINDINGS: LIVER: The liver is enlarged. No focal lesions are seen. There appears to be reduced flow in the main portal vein. The portal vein is patent on the recent CT examination. COMMON DUCT: The common bile duct is dilated at 12 mm. GALLBLADDER: Multiple small gallstones are seen. There is also gallbladder sludge present. The gallbladder wall is not thickened. There is minimal pericholecystic fluid seen. PANCREAS: The visualized portions are within normal limits. RIGHT KIDNEY: No hydronephrosis, stone or mass. SPLEEN: The patient is status post splenectomy. CONCLUSION: 1. Hepatomegaly. 2. Cholelithiasis. There is some minimal fluid around the gallbladder. The gallbladder wall itself is not thickened. This should be correlated with any clinical or laboratory findings of cholecystitis. 3. Dilatation the common bile duct. The cause the dilatation is not seen. 4. Status post splenectomy. Adi Wylie MD on February 18, 2017 at 18:02 Board Certified Radiologist. This report was verified electronically.
--- NOTE | 2017-02-18 19:05 | EKG ---
Date Performed: 02/17/2017 Time Performed: 21:10:11 PTAGE: 51 years EKG: Sinus rhythm NORMAL ECG NO PREVIOUS TRACING DOCTOR: Jonathan Vargas Interpretating Date/Time 02/18/2017 19:04:10
[2017-02-18] MEDS ORDERED: POVIDONE IODINE 5% (ANTISEPSIS KIT) 4 APPLICATIONS EACH NARE PRN (23:45)
[2017-02-18] MEDS ORDERED: LACTATED RINGER'S 1000 ML IV PRN (23:45)
[2017-02-18] MEDS ORDERED: INSULIN HUMAN REGULAR 1,000 UNITS/10 ML VIAL SQ PRN (23:45)
[2017-02-18] MEDS ORDERED: CHLORHEXIDINE GLUCONATE 2 % 1 PACK (2 CLOTHS) TOPICAL PRN (23:45)
[2017-02-18] MEDS ORDERED: METOPROLOL TARTRATE 25 MG TAB PO PRN (23:45)
[2017-02-18] MEDS ORDERED: SODIUM CHLORID 0.9% 500 ML IV PRN (23:45)
[2017-02-19] VITALS (12 sets, daily range): BP systolic 108–140; BP diastolic 61–82; PULSE 57–66; RESP 12–18; TEMP 96.6–98.6; O2SAT 95–100
[2017-02-19] MEDS: PROPRANOLOL HCL 20 MG TAB PO SCH ×2 (08:27→21:00)
[2017-02-19] MEDS: LACTULOSE SYRUP 20 GM/30 ML CUP PO SCH ×3 (08:27→18:00)
[2017-02-19] MEDS: DOCUSATE SODIUM 50 MG/SENNA 8.6 MG TAB PO SCH ×2 (08:28→21:00)
[2017-02-19] MEDS: SODIUM CHLORIDE 0.9% FLUSH 10 ML FLUSH IV FLUSH SCH ×2 (08:28→21:58)
[2017-02-19 08:32] LABS: HEMATOCRIT 31.6 % (39.0-51.0); MEAN CELL VOLUME 114.1 FL (80.0-100.0); MEAN CORPUSCULAR HEMOGLOBIN 40.2 PG (27.0-34.0); MEAN CORPUSCULAR HGB CONC 35.2 % (32.0-36.0); PLATELET COUNT 54 TH/MM3 (150-450); RED BLOOD COUNT 2.77 MIL/MM3 (4.50-5.90); RED CELL DISTRIBUTION WIDTH 20.9 % (11.6-17.2); REVIEW FLAG FINAL
[2017-02-19 08:33] LABS: APTT (PATIENT) 36.6 SEC (24.3-30.1); INTERNATIONAL NORMALIZED RATIO 1.2 RATIO; PROTHROMBIN TIME - PATIENT 13.6 SEC (9.8-11.6)
[2017-02-19 09:02] LABS: ALKALINE PHOSPHATASE 105 U/L (45-117); TOTAL BILIRUBIN ADULT 1.9 MG/DL (0.2-1.0)
[2017-02-19 09:09] LABS: ALT (GPT) 43 U/L (12-78); ANION GAP 6 MEQ/L (5-15); AST (GOT) 65 U/L (15-37); BICARBONATE 22.4 MEQ/L (21.0-32.0); BLOOD UREA NITROGEN 14 MG/DL (7-18); CHLORIDE 109 MEQ/L (98-107); GLOMERULAR FILTRATION RATE 155 ML/MIN (>89); SODIUM (NA) 137 MEQ/L (136-145); TRANSFERRIN IRON PROFILE 130 MG/DL (200-360)
[2017-02-19 09:14] LABS: POTASSIUM 3.8 MEQ/L (3.5-5.1)
[2017-02-19] MEDS ORDERED: PROPOFOL 200 MG/20 ML AMP IV ONE (12:00)
[2017-02-19] MEDS ORDERED: SUCCINYLCHOLINE CHLORIDE 100 MG/5 ML SYRINGE IV PUSH ONE (12:00)
[2017-02-19] MEDS ORDERED: LIDOCAINE HCL 1% PF 5 ML AMPULE OTHER ONE (12:00)
--- NOTE | 2017-02-19 12:12 | HHI.FPPN ---
Subjective Remarks Resting comfortably in bed, no concerns today. Denies abdominal pain, chest pain , shortness of breath, calf pain, nausea/vomiting. (Jamison Woodson MD R2) Objective Vitals Vital Signs Date Time Temp Pulse Resp B/P (MAP) Pulse Ox O2 Delivery O2 Flow Rate FiO2 02/19/17 08:00 96.6 66 17 121/69 (86) 95 02/19/17 04:00 98.1 63 15 136/82 (100) 95 02/19/17 00:00 98.3 66 16 140/79 (99) 98 02/18/17 20:00 98.7 75 15 133/81 (98) 94 02/18/17 19:14 Room Air 02/18/17 16:00 96.9 67 18 140/82 (101) 97 I/O 02/18/17 02/18/17 02/18/17 02/19/17 02/19/17 02/19/17 07:00 15:00 23:00 07:00 15:00 23:00 Intake Total 240 ml 533 ml Balance 240 ml 533 ml Intake Oral 240 ml 360 ml IV Total 173 ml # Voids 1 1 1 # Bowel Movements 0 0 (Jamison Woodson MD R2) Result Diagram: 02/19/17 0800 02/19/17 0800 Imaging Last Impressions Chest X-Ray 02/19/17 0000 Signed Impressions: Service Date/Time: Sunday, February 19, 2017 13:32 - CONCLUSION: Endotracheal tube distal tip measures 6.1 cm from the jose juan. Otherwise, no acute finding is identified. Adi Carmen MD Liver Ultrasound 02/18/17 0000 Signed Impressions: Service Date/Time: Saturday, February 18, 2017 17:22 - CONCLUSION: 1. Hepatomegaly. 2. Cholelithiasis. There is some minimal fluid around the gallbladder. The gallbladder wall itself is not thickened. This should be correlated with any clinical or laboratory findings of cholecystitis. 3. Dilatation the common bile duct. The cause the dilatation is not seen. 4. Status post splenectomy. Adi Wylie MD Abdomen/Pelvis CT 02/17/[id number] Signed Impressions: Service Date/Time: Friday, February 17, 2017 22:59 - CONCLUSION: Extensive gastroesophageal varices , status post splenectomy. The solid organs are unremarkable. No evidence of bowel obstruction. Kidneys enhance normally. Gopi Reagan MD Head CT [id number]/17/[id number] Signed Impressions: Service Date/Time: Friday, February 17, 2017 22:53 - CONCLUSION: Normal examination. Gopi Reagan MD Cervical Spine CT 02/17/17 0000 Signed Impressions: Service Date/Time: Friday, February 17, 2017 22:53 - CONCLUSION: Normal examination. Gopi Reagan MD Objective Remarks Gen: WDWN adult white male lying in bed dozing, comfortable, NAD Lungs: CTAB, no crackles or wheezes Heart: NRRR, normal S1/S2, no murmur Abdomen: Soft, NDNT. No hepatosplenomegaly or palpable masses MSK: No cyanosis or edema. No calf tenderness. 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 Case reviewed and discussed with the resident team. Agree with plan of care as discussed with me and documented in the resident note. (Nika Mejia MD) Problem List: (1) Esophageal varices ICD Codes: I85.00 - Esophageal varices without bleeding Plan: Secondary to underlying liver disease (alcoholic versus Gaucher versus both). Noted on CT. 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 Plan: Reported h/o Gaucher disease, labs support this with mild anemia, thrombocytopenia Previously taking Cerezyme; per patient was discontinued 2 years ago by prior physician Macrocytosis, could be due to Gaucher disease or alcohol use - Trend CBC, CMP - GI work-up as above (3) Altered mental status ICD Codes: R41.82 - Altered mental status, unspecified Status: Resolved Plan: Initially presented with disorientation by history and ED/EVAC report, now resolved A/w some nausea and 1 episode NBNB emesis Work-up CT abdomen/pelvis without evidence of acute pathology (see above), but does show extensive varices which may be indicative of either Gaucher disease or chronic alcohol use Troponin < 0.02 EKG normal sinus rhythm with no ST-T wave changes CBC with mild anemia and thrombocytopenia c/w known Gaucher disease Ammonia level 93 --> 163, --> 93 TSH wnl Alcohol, tylenol, and salicylate levels normal UDS positive for marijuana Reported h/o fall, exam benign, CT head negative for bleeding - Likely secondary to hepatic encephalopathy, see plan above - Offered psychiatry consult (had been seeing psychiatrist in [place], acute stressor with loss of granddaughter, new to [place]), patient declined, and in any case does not currently meet criteria for [place] or inpatient psychiatric admission. Continue to monitor - CIWA assessment scoring per protocol; will order meds if scores indicative of withdrawal though unlikely this episode was due to intoxication given low blood alcohol level (4) FEN/PPX Plan: Fluids: Tolerating PO Elecs: Monitor, replete PRN Nutrition: Diet regular basic DVT: Not indicated given low risk Code status: FULL CODE (Jamison Woodson MD R2) Problem Qualifiers (1) Esophageal varices: Qualified Codes: I85.10 - Secondary esophageal varices without bleeding (2) Altered mental status: Qualified Codes: R41.0 - Disorientation, unspecified Jamison Woodson MD R2 Feb 19, 2017 12:12 Nika Mejia MD Feb 20, 2017 12:57
[2017-02-19] MEDS ORDERED: PROPOFOL 1000 MG/100 ML INJ 100 ML ONE (13:16)
[2017-02-19] MEDS ORDERED: DO NOT ADM ANY ANTICOAGULANT DRUGS PRN (13:19)
--- NOTE | 2017-02-19 13:19 | PD.PROCEDR ---
GI Procedure REFERRING PHYSICIAN Shayan PROCEDURE PERFORMED EGD with biopsy INDICATION FOR PROCEDURE Cirrhosis with noted varices on imaging and anemia PROCEDURE: The procedure, risks and benefits were discussed with Mr. Yepez and informed consent was obtained. Anesthesia sedated him with Diprivan patient was intubated. He was placed in the left lateral decubitus position. EGD: The Pentax videoscope was introduced through the oropharynx and advanced to the second portion of the duodenum under direct visualization. Retroflexion was performed in the stomach. FINDINGS: Upon entering the hypopharynx there was noted a small friable mass on the posterior aspect of the hypopharynx and once the scope touched it started to ooze and bleed and this continued throughout the procedure and was noted to continue to leak and issues and so the patient ultimately was left intubated The esophagus there was 2 columns of grade 1 esophageal varices with no stigmata and the Z line was irregular this was not biopsied The stomach there was patchy erythema in the antrum and gastric body no ulcerations no erosions this was biopsies for further evaluation on retroflexion I did note early small gastric varices The duodenum this was normal ESTIMATED BLOOD LOSS: About 20 cc from the pharyngeal tumor SPECIMENS REMOVED: Antral biopsies taken COMPLICATIONS: None IMPRESSION: Bleeding-pharyngeal tumor Esophageal varices Irregular Z line Gastric varices Gastritis PLAN: Will obtain ENT evaluation We'll continue with current supportive measures Patient remained intubated Continue with PPI Monitor labs and transfuse as needed Deandre Rosales MD Feb 19, 2017 13:19
[2017-02-19] MEDS ORDERED: PROPOFOL 1000 MG/100 ML IV PRN (13:45)
--- NOTE | 2017-02-19 13:50 | RADRPT ---
EXAM DATE/TIME: 02/19/2017 13:32 [facility] COMPARISON: CHEST SINGLE AP, February 17, 2017, 20:59. INDICATIONS : Post ET tube placement in OR. MEDICAL HISTORY : Cirrhosis. Cerebrovascular accident. Arthritis. Gout SURGICAL HISTORY : Splenectomy. Fasciotomy. Carpal tunnel repair. ENCOUNTER: Initial ACUITY: 1 day PAIN SCORE: Non-responsive. LOCATION: Bilateral chest FINDINGS: Portable AP view of the chest demonstrates a normal-sized cardiac silhouette. Endotracheal tube is pr esent with distal tip of the clavicular head level measuring 6.1 cm from the jose juan. Lungs are underi nflated. No effusion, consolidation, or pneumothorax is identified. Bones and soft tissues demonstrat e no acute finding. CONCLUSION: Endotracheal tube distal tip measures 6.1 cm from the jose juan. Otherwise, no acute finding is identifi ed. Adi Carmen MD on February 19, 2017 at 13:47 Board Certified Radiologist. This report was verified electronically.
[2017-02-19 15:09] LABS: BLOOD GAS BASE EXCESS -3.9 mmol/L (-2-2); BLOOD GAS CARBOXYHEMOGLOBIN 1.2 % (0-4); BLOOD GAS HCO3 21 mmol/L (22-26); BLOOD GAS METHEMOGLOBIN 1.4 % (0-2); BLOOD GAS O2 HGB SATURATION 97 % (90-100); BLOOD GAS OXYGEN CONTENT 15.4 Vol % (12.0-20.0); BLOOD GAS PCO2 36 mmHg (38-42); BLOOD GAS PO2 167 mmHg (61-120); BLOOD GAS TOTAL HGB 11.1 G/DL (12.0-16.0); CRITICAL VALUE NO; DRAW SITE LT RADIAL; FIO2 40 %; NUMBER OF ARTERIAL PUNCTURES 1; OXYGEN DEVICE VENTILATOR; STAT NO; TEMP CORR TO 98.6; ULNAR PULSE PRESENT
[2017-02-19] MEDS ORDERED: RESP: ALBUTEROL 2.5 MG/IPRATROPIUM 0.5 MG NEB (PRN) INH (15:30)
[2017-02-19] MEDS ORDERED: MISCELLANEOUS NURSING INFORMATION XX SCH (15:30)
[2017-02-19] MEDS ORDERED: CHLORHEXIDINE GLUCONATE 2 % 1 PACK (2 CLOTHS) TOP PRN (15:30)
[2017-02-19] MEDS ORDERED: SODIUM CHLORIDE 0.9% FLUSH 10 ML FLUSH IV FLUSH PRN (15:30)
[2017-02-19] MEDS: PROPOFOL 1000 MG/100 ML INJ 100 ML IV PRN ×2 (16:00→21:58)
[2017-02-19] MEDS: SODIUM CHLOR 0.9% 1000 ML INJ 1,000 ML IV SCH (16:30)
[2017-02-19] MEDS: RESP: ALBUTEROL 2.5 MG/IPRATROPIUM 0.5 MG NEB (SCH) NEB ×2 (16:38→19:55)
--- NOTE | 2017-02-19 16:46 | PD.CONS ---
HPI Service Critical Care Medicine Consult Requested By Dr. Rosales Reason for Consult Vent management/ critical care Primary Care Physician Unknown History of Present Illness 51-year-old male with a medical history significant for Gaucher's disease status post previous splenectomy presented with nausea, vomiting and altered mental status. Patient was brought to the ER and kept as observation status by family medicine service. GI was consulted as CT abdomen pelvis revealed extensive gastroesophageal varices. Patient underwent EGD on 02/19 by GI and was noted to have a bleeding pharyngeal tumor which started oozing on getting contact with endoscope. Patient was noted to have significant gastroesophageal varices however no active bleeding noted from viruses or from stomach and duodenum. Antral biopsies taken. Patient was left intubated in view of bleeding from pharyngeal tumor which is to be evaluated by ENT. Patient was transferred to PACU and subsequently to [facility]. Critical care consult was requested by GI for vent management/critical care. An I evaluated the patient following his arrival to the ICU, he was sedated with propofol, orally intubated on mechanical ventilation. History was obtained by reviewing records and discussion with ICU/ PACU staff. Review of Systems Unavailable as patient is sedated, orally intubated on mechanical ventilation following EGD Past Family Social History Past Medical History Gaucher Disease Past Surgical History Splenectomy Allergies: Coded Allergies: aspirin (Unverified Allergy, Severe, Bleeding, 02/17/17) Family History Mother was alcoholic No psychiatric disorders that run in family (besides substance abuse) Social History Alcohol: See HPI Tobacco: 1/2 PPD (cut back from 1-2 PPD since age 12 or so) Drugs: Smokes marijuana daily; denies other substance use Physical Exam Vital Signs Vital Signs Date Time Temp Pulse Resp B/P (MAP) Pulse Ox O2 Delivery O2 Flow Rate FiO2 02/19/17 13:32 98 40 02/19/17 12:00 97.9 65 18 129/74 (92) 97 02/19/17 08:00 96.6 66 17 121/69 (86) 95 02/19/17 04:00 98.1 63 15 136/82 (100) 95 02/19/17 00:00 98.3 66 16 140/79 (99) 98 02/18/17 20:00 98.7 75 15 133/81 (98) 94 02/18/17 19:14 Room Air Physical Exam HEENT/ Neuro: Sedated, orally intubated, no pallor, no icterus, tongue/ mucosa moist Neck: No JVD Chest/Pulm: on mech vent, good air entry bilaterally, no wheezing or crackles CVS: S1-S2 regular, no murmur GI/abdomen: soft, nontender, bowel sounds sluggish Extremities: warm bilaterally, no edema Laboratory Laboratory Tests Test 02/19/17 08:00 02/19/17 15:00 White Blood Count 12.0 Red Blood Count 2.77 Hemoglobin 11.1 Hematocrit 31.6 Mean Corpuscular Volume 114.1 Mean Corpuscular Hemoglobin 40.2 Mean Corpuscular Hemoglobin Concent 35.2 Red Cell Distribution Width 20.9 Platelet Count 54 Mean Platelet Volume 11.1 Prothrombin Time 13.6 Prothromb Time International Ratio 1.2 Activated Partial Thromboplast Time 36.6 Blood Urea Nitrogen 14 Creatinine 0.56 Random Glucose 86 Total Protein 7.5 Albumin 2.5 Calcium Level 8.6 Alkaline Phosphatase 105 Aspartate Amino Transf (AST/SGOT) 65 Alanine Aminotransferase (ALT/SGPT) 43 Total Bilirubin 1.9 Sodium Level 137 Potassium Level 3.8 Chloride Level 109 Carbon Dioxide Level 22.4 Anion Gap 6 Estimat Glomerular Filtration Rate 155 Iron Level 167 Total Iron Binding Capacity 182 Percent Iron Saturation 91.8 Ammonia 93 Tumor Marker Alpha Fetoprotein 6.9 Hepatitis A IgM Antibody NEGATIVE Hepatitis B Surface Antigen NEGATIVE Hepatitis B Core IgM Antibody NEGATIVE Hepatitis C Antibody NEGATIVE Blood Gas Puncture Site LT RADIAL Blood Gas Patient Temperature 98.6 Blood Gas HCO3 21 Blood Gas Base Excess -3.9 Blood Gas Oxygen Saturation 97 Arterial Blood pH 7.37 Arterial Blood Partial Pressure CO2 36 Arterial Blood Partial Pressure O2 167 Arterial Blood Oxygen Content 15.4 Arterial Blood Carboxyhemoglobin 1.2 Arterial Blood Methemoglobin 1.4 Blood Gas Hemoglobin 11.1 Oxygen Delivery Device VENTILATOR Blood Gas Ventilator Setting AC,12,500,PEEP5 Blood Gas Inspired Oxygen 40 Result Diagram: 02/19/17 0800 02/19/17 0800 Imaging Last Impressions Chest X-Ray 02/19/17 0000 Signed Impressions: Service Date/Time: Sunday, February 19, 2017 13:32 - CONCLUSION: Endotracheal tube distal tip measures 6.1 cm from the jose juan. Otherwise, no acute finding is identified. Adi Carmen MD Liver Ultrasound 02/18/17 0000 Signed Impressions: Service Date/Time: Saturday, February 18, 2017 17:22 - CONCLUSION: 1. Hepatomegaly. 2. Cholelithiasis. There is some minimal fluid around the gallbladder. The gallbladder wall itself is not thickened. This should be correlated with any clinical or laboratory findings of cholecystitis. 3. Dilatation the common bile duct. The cause the dilatation is not seen. 4. Status post splenectomy. Adi Wylie MD Abdomen/Pelvis CT 02/17/174 Signed Impressions: Service Date/Time: Friday, February 17, 2017 22:59 - CONCLUSION: Extensive gastroesophageal varices , status post splenectomy. The solid organs are unremarkable. No evidence of bowel obstruction. Kidneys enhance normally. Gopi Reagan MD Head CT 02/17/[id number] Signed Impressions: Service Date/Time: Friday, February 17, 2017 22:53 - CONCLUSION: Normal examination. Gopi Reagan MD Cervical Spine CT 02/17/17 0000 Signed Impressions: Service Date/Time: Friday, February 17, 2017 22:53 - CONCLUSION: Normal examination. Gopi Reagan MD Assessment and Plan Assessment and Plan 51-year-old male with: Bleeding pharyngeal tumor Acute respiratory failure on mechanical ventilation Gastroesophageal varices Suspected liver cirrhosis Gaucher's disease Plan: Neuro: Sedation with propofol, daily sedation vacation. Follow neuro status. Cardiovascular: Watch for hypotension, IV hydration Pulmonary: Patient will be kept intubated on mechanical ventilation until evaluation by ENT for bleeding pharyngeal tumor. Vent bundle, bronchodilators as needed. GI/liver: Status post EGD. GI following for gastroesophageal masses with liver cirrhosis possibly secondary to Gaucher's disease. Renal/: IV hydration, strict intake output, monitor and replete electro lites , follow BUN/creatinine. ID: No antibiotics at this time. Heme: Follow CBC and coags. Transfuse to keep hemoglobin above 8 g percent. Patient is status post splenectomy. Prophylaxis: PPI/SCDs. Awaiting ENT eval for pharyngeal tumor and then will decide regarding extubation. Critical care will continue to follow. Robby Wheatley MD Feb 19, 2017 16:46
--- NOTE | 2017-02-19 17:13 | HHI.FPPN ---
Addendum to progress note ADDENDUM Reason for addendum: Additonal documentation Additional information S: Patient seen and examined at bedside after notice of transfer to [facility] following EGD procedure. O: Physical Exam: GEN: Patient under sedation on ventilator. Skin: warm and dry. Resp: CTA BL Cardio: Normal s1 and S2. no m/g/r Abd: soft, non-distended A/P: 51 yo M with Gaucher's disease and portal HTN admitted for management of AMS. GI following for evaluation of cirrhosis and varices found on imaging -Friable posterior hypopharynx mass was found during EGD procedure with continued leak noted. Pt was left intubated and transferred to [facility]. -Plan is for pt to remain intubated, ENT was consulted by GI for further evaluation of mass. -Chemist Helper Dr. Wheatley following. -biopsy results pending dw Diane Berg MD, R1 Feb 19, 2017 17:13
[2017-02-19 18:19] LABS: HEMATOCRIT 31.2 % (39.0-51.0)
[2017-02-19 18:26] LABS: REVIEW FLAG FINAL
[2017-02-19] MEDS: CHLORHEXIDINE 0.12% (ORAL KIT) 15 ML CUP MT SCH (21:58)
[2017-02-20] VITALS (21 sets, daily range): BP systolic 103–130; BP diastolic 56–71; PULSE 59–74; RESP 14–21; TEMP 98–98.4; O2SAT 98–100
[2017-02-20] MEDS: PROPOFOL 1000 MG/100 ML INJ 100 ML IV PRN ×3 (01:44→10:32)
[2017-02-20] MEDS: RESP: ALBUTEROL 2.5 MG/IPRATROPIUM 0.5 MG NEB (SCH) NEB ×3 (03:40→14:32)
[2017-02-20] MEDS ORDERED: CHLORHEXIDINE GLUCONATE 2 % 1 PACK (2 CLOTHS) TOP SCH (04:00)
[2017-02-20] MEDS: SODIUM CHLOR 0.9% 1000 ML INJ 1,000 ML IV SCH ×2 (05:12→16:20)
[2017-02-20 07:15] LABS: AUTOMATED NEUTROPHIL # 4.2 TH/MM3 (1.8-7.7); BASOPHIL # 0.1 TH/MM3 (0-0.2); BASOPHIL % 0.8 % (0.0-2.0); EOSINOPHIL # 0.2 TH/MM3 (0-0.4); EOSINOPHIL % 1.8 % (0.0-4.0); HEMATOCRIT 30.9 % (39.0-51.0); LYMPH % 48.3 % (9.0-44.0); MEAN CELL VOLUME 115.1 FL (80.0-100.0); MEAN CORPUSCULAR HGB CONC 34.8 % (32.0-36.0); MONO % 8.8 % (0.0-8.0); NEUT % 40.3 % (16.0-70.0); PLATELET COUNT 49 TH/MM3 (150-450); RED BLOOD COUNT 2.68 MIL/MM3 (4.50-5.90); RED CELL DISTRIBUTION WIDTH 21.9 % (11.6-17.2); WHITE BLOOD COUNT 10.4 TH/MM3 (4.0-11.0)
[2017-02-20 07:23] LABS: HEMO FLAGS AUTO DIFF
[2017-02-20 07:27] LABS: ANION GAP 9 MEQ/L (5-15); AST (GOT) 61 U/L (15-37); BICARBONATE 22.4 MEQ/L (21.0-32.0); BLOOD UREA NITROGEN 16 MG/DL (7-18); CHLORIDE 109 MEQ/L (98-107); GLOMERULAR FILTRATION RATE 135 ML/MIN (>89); POTASSIUM 3.8 MEQ/L (3.5-5.1); SODIUM (NA) 140 MEQ/L (136-145)
[2017-02-20 07:31] LABS: ALKALINE PHOSPHATASE 93 U/L (45-117); ALT (GPT) 41 U/L (12-78); TOTAL BILIRUBIN ADULT 1.5 MG/DL (0.2-1.0)
[2017-02-20] MEDS: CHLORHEXIDINE 0.12% (ORAL KIT) 15 ML CUP MT SCH (08:00)
[2017-02-20] MEDS ORDERED: ARTIFICIAL TEARS OPTH SOLN 15 ML BTL EACH EYE PRN (08:30)
[2017-02-20] MEDS ORDERED: ROCURONIUM INJ 50 MG/5 ML VIAL IV ONE (08:30)
[2017-02-20] MEDS ORDERED: ROCURONIUM INJ 50 MG/5 ML VIAL ONE (08:32)
[2017-02-20 08:59] LABS: BANDS 1 % (0-6); BASOPHILS 1 % (0-2); CORRECTED NUCLEATED RBC 4 /100 WBC (0-0); EOSINOPHILS 1 % (0-4); NEUTROPHIL # MANUAL DIFF 4.7 TH/MM3 (1.8-7.7); POLYS (SEG NEUTROPHILS) 44 % (16-70); WBC DIFF SAMPLE 100
[2017-02-20 09:00] LABS: HOWELL-JOLLY BODIES PRESENT (NONE SEEN); PLATELET ESTIMATE SMEAR LOW (NORMAL); PLATELET MORPHOLOGY ENLARGED (NORMAL)
[2017-02-20] MEDS: PROPRANOLOL HCL 20 MG TAB PO SCH (09:00)
[2017-02-20] MEDS: DOCUSATE SODIUM 50 MG/SENNA 8.6 MG TAB PO SCH (09:00)
[2017-02-20] MEDS: LACTULOSE SYRUP 20 GM/30 ML CUP PO SCH ×3 (09:00→18:00)
[2017-02-20] MEDS: SODIUM CHLORIDE 0.9% FLUSH 10 ML FLUSH IV FLUSH SCH (09:00)
[2017-02-20 09:01] LABS: ACANTHOCYTES OCC (NORMAL); SCAN/DIFF FINAL DIFF MANUAL; TARGET CELLS 1+ (NORMAL)
--- NOTE | 2017-02-20 09:19 | HHI.GIFU ---
Subjective Remarks Sedated on vent. Dr. Wheatley and Dr. Cannon in for laryngoscope- suspected pharyngeal polyp- friable. Plan is to extubate patient this afternoon and plan for possible biopsy on Saturday with ENT. There is no active GI bleeding at this time. VSS (Shaunna Dominique) Objective Vitals I&O Vital Signs Date Time Temp Pulse Resp B/P (MAP) Pulse Ox O2 Delivery O2 Flow Rate FiO2 02/20/17 08:45 98 35 02/20/17 08:45 98 35 02/20/17 06:00 66 02/20/17 04:30 100 35 02/20/17 04:00 68 02/20/17 04:00 35 02/20/17 04:00 98.3 68 19 107/63 (78) 98 02/20/17 02:00 63 02/20/17 01:10 99 35 02/20/17 00:00 35 02/20/17 00:00 98.0 59 14 103/64 (77) 99 02/20/17 00:00 59 02/19/17 22:17 100 35 02/19/17 20:00 97.5 58 17 109/67 (81) 100 02/19/17 20:00 35 02/19/17 19:55 100 35 02/19/17 18:41 57 02/19/17 16:36 100 35 02/19/17 16:00 98.6 02/19/17 16:00 98.6 59 12 108/61 (77) 100 02/19/17 14:50 100 100 02/19/17 14:30 61 15 111/53 (72) 98 Mechanical Ventilator 40 02/19/17 14:15 63 16 95/52 (66) 98 Mechanical Ventilator 40 02/19/17 14:00 67 19 103/56 (72) 98 Mechanical Ventilator 40 02/19/17 13:45 69 18 122/62 (82) 98 Mechanical Ventilator 40 02/19/17 13:32 98 40 02/19/17 13:30 66 17 136/62 (86) 98 Mechanical Ventilator 40 02/19/17 13:17 40 02/19/17 13:17 98.2 70 13 118/72 (87) 99 Mechanical Ventilator 40 02/19/17 12:00 97.9 65 18 129/74 (92) 97 I/O 02/19/17 02/19/17 02/19/17 02/20/17 02/20/17 02/20/17 07:00 15:00 23:00 07:00 15:00 23:00 Intake Total 400 ml 0 ml 936 ml Output Total 1150 ml Balance 400 ml 0 ml -214 ml Intake Oral 0 ml IV Total 936 ml Other 400 ml Output Urine Total 1150 ml # Voids 2 # Bowel Movements 0 0 Laboratory Laboratory Tests Test 02/19/17 15:00 02/19/17 18:03 02/20/17 02:50 02/20/17 06:41 Blood Gas Puncture Site LT RADIAL Blood Gas Patient Temperature 98.6 Blood Gas HCO3 21 Blood Gas Base Excess -3.9 Blood Gas Oxygen Saturation 97 Arterial Blood pH 7.37 Arterial Blood Partial Pressure CO2 36 Arterial Blood Partial Pressure O2 167 Arterial Blood Oxygen Content 15.4 Arterial Blood Carboxyhemoglobin 1.2 Arterial Blood Methemoglobin 1.4 Blood Gas Hemoglobin 11.1 Oxygen Delivery Device VENTILATOR Blood Gas Ventilator Setting AC,12,500,PEEP5 Blood Gas Inspired Oxygen 40 Hemoglobin 11.0 10.7 Hematocrit 31.2 30.9 White Blood Count 10.4 Red Blood Count 2.68 Mean Corpuscular Volume 115.1 Mean Corpuscular Hemoglobin 40.0 Mean Corpuscular Hemoglobin Concent 34.8 Red Cell Distribution Width 21.9 Platelet Count 49 Mean Platelet Volume 11.0 Neutrophils (%) (Auto) 40.3 Lymphocytes (%) (Auto) 48.3 Monocytes (%) (Auto) 8.8 Eosinophils (%) (Auto) 1.8 Basophils (%) (Auto) 0.8 Neutrophils # (Auto) 4.2 Lymphocytes # (Auto) 5.0 Monocytes # (Auto) 0.9 Eosinophils # (Auto) 0.2 Basophils # (Auto) 0.1 CBC Comment AUTO DIFF Blood Urea Nitrogen 16 Creatinine 0.63 Random Glucose 87 Total Protein 7.2 Albumin 2.3 Calcium Level 8.1 Alkaline Phosphatase 93 Aspartate Amino Transf (AST/SGOT) 61 Alanine Aminotransferase (ALT/SGPT) 41 Total Bilirubin 1.5 Sodium Level 140 Potassium Level 3.8 Chloride Level 109 Carbon Dioxide Level 22.4 Anion Gap 9 Estimat Glomerular Filtration Rate 135 Imaging Last Impressions Chest X-Ray 02/19/17 0000 Signed Impressions: Service Date/Time: Sunday, February 19, 2017 13:32 - CONCLUSION: Endotracheal tube distal tip measures 6.1 cm from the jose juan. Otherwise, no acute finding is identified. Adi Carmen MD Liver Ultrasound 02/18/17 0000 Signed Impressions: Service Date/Time: Saturday, February 18, 2017 17:22 - CONCLUSION: 1. Hepatomegaly. 2. Cholelithiasis. There is some minimal fluid around the gallbladder. The gallbladder wall itself is not thickened. This should be correlated with any clinical or laboratory findings of cholecystitis. 3. Dilatation the common bile duct. The cause the dilatation is not seen. 4. Status post splenectomy. Adi Wylie MD Abdomen/Pelvis CT 02/17/[id number] Signed Impressions: Service Date/Time: Friday, February 17, 2017 22:59 - CONCLUSION: Extensive gastroesophageal varices , status post splenectomy. The solid organs are unremarkable. No evidence of bowel obstruction. Kidneys enhance normally. Gopi Reagan MD Head CT 02/17/172056 Signed Impressions: Service Date/Time: Friday, February 17, 2017 22:53 - CONCLUSION: Normal examination. Gopi Reagan MD Cervical Spine CT 02/17/17 0000 Signed Impressions: Service Date/Time: Friday, February 17, 2017 22:53 - CONCLUSION: Normal examination. Gopi Reagan MD Physical Exam HEENT: Normocephalic; atraumatic; no jaundice. CHEST: OETT to vent. CTA CARDIAC: RRR ABDOMEN: Soft, nondistended, nontender; no hepatosplenomegaly; bowel sounds are present in all four quadrants. EXTREMITIES: No clubbing, cyanosis, or edema. SKIN: Normal; no rash; no jaundice. HAIR OR BEAUTY SALON MANAGER: Sedated/paralyzed for procedure. (Shaunna Dominique) Assessment and Plan Plan ASSESSMENT: - Friable pharyngeal mass/polyp. S/P laryngoscope today with ENT/CCM- suspected polyp (friable). Plan is for patient to be extubated this afternoon and possible biopsy on Saturday with ENT. - Esophageal Varices. S/P EGD (02/18/17)---> Bleeding-pharyngeal tumor, Esophageal varices, Irregular Z line, Gastric varices, Gastritis. Pathology pending. - Liver cirrhosis with elevated LFTs. CT scan abdomen and pelvis with iv contrast (02/17/17)---> Extensive gastroesophageal varices, s/p splenectomy. The solid organs unremarkable. No evidence of bowel obstruction. Kidneys enhance normally. Liver US (02/18/17)--> Hepatomegaly, cholelithiasis. There is some minimal fluid around the gallbladder. The gallbladder wall itself is not thickened. This should be correlated with any clinical or laboratory findings of cholecystitis. Dilatation of the common bile duct. The cause of the dilatation is unknown, s/p splenectomy. Hepatitis negative. MEIR/ASMA/AMA pending, AFP 6.9, Ceruloplasmin/Alpha 1 ANtitrypsin pending, Iron saturation 91.8. Check ferritin. Hfe gene. T. Bili 1.5, 61, 41, 93. - Elevated Iron saturation 91.8%. Will get ferritin, Hfe gene. - Dilated CBD 12 mm. GB with some minimal fluid around the gallbladder, but no GB wall thickening. CT scan noted cholelithiasis, but did not appreciate any biliary dialtation. He is currently sedated/ paralyzed for procedure and unable to check for RUQ tenderness. LFTs are stable. Slightly improved. Will continue to monitor at this time. - Hepatic encephalopathy. Ammonia 93. Lactulose. Consider adding Xifaxan when taking po - Anemia, macrocytic. 10.7/30.9. MCV 115.1. - Thrombocytopenia. Plt. 49 - Resp. Failure. Vent per CCM. - ETOH abuse. DT precautions per attending. - Gaucher's disease. Per attending. PLAN - NPO, plan is for extubation today. Okay for clears once extubated. - Await pathology - Cont. Propranolol - Cont. Lactulose - Add Protonix - Await liver workup - Ferritin level - Hfe gene - Monitor labs - CCM following - ENT following. - Further recommendations to follow based on results of above - Pt seen by myself and Dr Rosales and this note is written on his behalf (Shaunna Dominique) Physician Comments Patient seen and examined Agree with above Continue with current supportive care Monitor labs (Deandre Rosales MD) Shaunna Dominique Feb 20, 2017 09:19 Deandre Rosales MD Feb 20, 2017 18:46
--- NOTE | 2017-02-20 09:22 | PD.CONS ---
History of Present Illness Service ENT Consult Requested By [facility] [place] Reason for Consult Pharyngeal Mass. Primary Care Physician Unknown Diagnoses: History of Present Illness 51 year old man, history of Gaucher's Disease, post splenectomy. Admitted after altered level of consciousness. As part of evaluation, due to previous GI history had an upper endoscopy. They saw a posterior pharyngeal wall lesion. It was friable. The patient has been kept intubated post procedure for ENT evaluation. There apparently were no premorbid complaints related to the pharynx. Review of Systems Ears, nose, mouth, throat: DENIES: Nasal discharge, Oral lesions, Throat pain, Hoarseness Past Family Social History Allergies: Coded Allergies: aspirin (Unverified Allergy, Severe, Bleeding, 02/17/17) Past Medical History Gaucher's Past Surgical History Splenectomy GI endoscopy Physical Exam Vital Signs Vital Signs Date Time Temp Pulse Resp B/P (MAP) Pulse Ox O2 Delivery O2 Flow Rate FiO2 02/20/17 08:45 98 35 02/20/17 08:45 98 35 02/20/17 06:00 66 02/20/17 04:30 100 35 02/20/17 04:00 68 02/20/17 04:00 35 02/20/17 04:00 98.3 68 19 107/63 (78) 98 02/20/17 02:00 63 02/20/17 01:10 99 35 02/20/17 00:00 35 02/20/17 00:00 98.0 59 14 103/64 (77) 99 02/20/17 00:00 59 02/19/17 22:17 100 35 02/19/17 20:00 97.5 58 17 109/67 (81) 100 02/19/17 20:00 35 02/19/17 19:55 100 35 02/19/17 18:41 57 02/19/17 16:36 100 35 02/19/17 16:00 98.6 02/19/17 16:00 98.6 59 12 108/61 (77) 100 02/19/17 14:50 100 100 02/19/17 14:30 61 15 111/53 (72) 98 Mechanical Ventilator 40 02/19/17 14:15 63 16 95/52 (66) 98 Mechanical Ventilator 40 02/19/17 14:00 67 19 103/56 (72) 98 Mechanical Ventilator 40 02/19/17 13:45 69 18 122/62 (82) 98 Mechanical Ventilator 40 02/19/17 13:32 98 40 02/19/17 13:30 66 17 136/62 (86) 98 Mechanical Ventilator 40 02/19/17 13:17 40 02/19/17 13:17 98.2 70 13 118/72 (87) 99 Mechanical Ventilator 40 02/19/17 12:00 97.9 65 18 129/74 (92) 97 Physical Exam GENERAL: This is a well-nourished, well-developed patient, in no apparent distress. SKIN: No rashes, ecchymoses or lesions. Cool and dry. HEAD: Atraumatic. Normocephalic. No temporal or scalp tenderness. EYES: Pupils equal round and reactive. Extraocular motions intact. No scleral icterus. No injection or drainage. ENT: Nose without bleeding, purulent drainage or septal hematoma. Throat without erythema, tonsillar hypertrophy or exudate. Uvula midline. Airway patent. NECK: Trachea midline. No JVD or lymphadenopathy. Supple, nontender, no meningeal signs. Patient was examined at bedside, under sedation, relaxed and intubated by myself and [employer]. [place] scope exam revealed a 2 cm posterior pharyngeal wall mass, near the midline at the level of the epiglottis. It was soft and pedunculated. Laboratory Laboratory Tests Test 02/19/17 15:00 02/19/17 18:03 02/20/17 02:50 02/20/17 06:41 Blood Gas Puncture Site LT RADIAL Blood Gas Patient Temperature 98.6 Blood Gas HCO3 21 Blood Gas Base Excess -3.9 Blood Gas Oxygen Saturation 97 Arterial Blood pH 7.37 Arterial Blood Partial Pressure CO2 36 Arterial Blood Partial Pressure O2 167 Arterial Blood Oxygen Content 15.4 Arterial Blood Carboxyhemoglobin 1.2 Arterial Blood Methemoglobin 1.4 Blood Gas Hemoglobin 11.1 Oxygen Delivery Device VENTILATOR Blood Gas Ventilator Setting AC,12,500,PEEP5 Blood Gas Inspired Oxygen 40 Hemoglobin 11.0 10.7 Hematocrit 31.2 30.9 White Blood Count 10.4 Red Blood Count 2.68 Mean Corpuscular Volume 115.1 Mean Corpuscular Hemoglobin 40.0 Mean Corpuscular Hemoglobin Concent 34.8 Red Cell Distribution Width 21.9 Platelet Count 49 Mean Platelet Volume 11.0 Neutrophils (%) (Auto) 40.3 Lymphocytes (%) (Auto) 48.3 Monocytes (%) (Auto) 8.8 Eosinophils (%) (Auto) 1.8 Basophils (%) (Auto) 0.8 Neutrophils # (Auto) 4.2 Lymphocytes # (Auto) 5.0 Monocytes # (Auto) 0.9 Eosinophils # (Auto) 0.2 Basophils # (Auto) 0.1 CBC Comment AUTO DIFF Differential Total Cells Counted 100 Neutrophils % (Manual) 44 Band Neutrophils % 1 Lymphocytes % 50 Monocytes % 3 Eosinophils % 1 Basophils % 1 Neutrophils # (Manual) 4.7 Nucleated Red Blood Cells 4 Differential Comment FINAL DIFF MANUAL Platelet Estimate LOW Platelet Morphology Comment ENLARGED Target Cells 1+ [place] Bodies PRESENT Acanthocytes OCC Red Cell Morphology Comment Blood Urea Nitrogen 16 Creatinine 0.63 Random Glucose 87 Total Protein 7.2 Albumin 2.3 Calcium Level 8.1 Alkaline Phosphatase 93 Aspartate Amino Transf (AST/SGOT) 61 Alanine Aminotransferase (ALT/SGPT) 41 Total Bilirubin 1.5 Sodium Level 140 Potassium Level 3.8 Chloride Level 109 Carbon Dioxide Level 22.4 Anion Gap 9 Estimat Glomerular Filtration Rate 135 Result Diagram: 02/20/17 0641 02/20/17 0641 Assessment and Plan Assessment and Plan 51 year old male, smoker with pharyngeal wall mass. It is not obstructing. It could be malignant. Patient is to be extubated today. Will return to discuss laryngoscopy and biopsy with him in the OR for Saturday. He platelet count has dropped significantly. Defer to [employer] on addressing this before OR. Thank you. Kolton Cannon MD Feb 20, 2017 09:22
--- NOTE | 2017-02-20 10:14 | HHI.FPPN ---
Subjective Remarks Patient seen and examined at bedside. He is sedated on ventilator. No acute events over night. (Diane Mcarthur MD, R1) Objective Vitals Vital Signs Date Time Temp Pulse Resp B/P (MAP) Pulse Ox O2 Delivery O2 Flow Rate FiO2 02/20/17 08:45 98 35 02/20/17 08:45 98 35 02/20/17 06:00 66 02/20/17 04:30 100 35 02/20/17 04:00 68 02/20/17 04:00 35 02/20/17 04:00 98.3 68 19 107/63 (78) 98 02/20/17 02:00 63 02/20/17 01:10 99 35 02/20/17 00:00 35 02/20/17 00:00 98.0 59 14 103/64 (77) 99 02/20/17 00:00 59 02/19/17 22:17 100 35 02/19/17 20:00 97.5 58 17 109/67 (81) 100 02/19/17 20:00 35 02/19/17 19:55 100 35 02/19/17 18:41 57 02/19/17 16:36 100 35 02/19/17 16:00 98.6 02/19/17 16:00 98.6 59 12 108/61 (77) 100 02/19/17 14:50 100 100 02/19/17 14:30 61 15 111/53 (72) 98 Mechanical Ventilator 40 02/19/17 14:15 63 16 95/52 (66) 98 Mechanical Ventilator 40 02/19/17 14:00 67 19 103/56 (72) 98 Mechanical Ventilator 40 02/19/17 13:45 69 18 122/62 (82) 98 Mechanical Ventilator 40 02/19/17 13:32 98 40 02/19/17 13:30 66 17 136/62 (86) 98 Mechanical Ventilator 40 02/19/17 13:17 40 02/19/17 13:17 98.2 70 13 118/72 (87) 99 Mechanical Ventilator 40 02/19/17 12:00 97.9 65 18 129/74 (92) 97 I/O 02/19/17 02/19/17 02/19/17 02/20/17 02/20/17 02/20/17 07:00 15:00 23:00 07:00 15:00 23:00 Intake Total 400 ml 0 ml 936 ml Output Total 1150 ml Balance 400 ml 0 ml -214 ml Intake Oral 0 ml IV Total 936 ml Other 400 ml Output Urine Total 1150 ml # Voids 2 # Bowel Movements 0 0 (Diane Mcarthur MD, R1) Result Diagram: 02/20/17 0641 02/20/17 0641 Imaging Last Impressions Chest X-Ray 02/19/17 0000 Signed Impressions: Service Date/Time: Sunday, February 19, 2017 13:32 - CONCLUSION: Endotracheal tube distal tip measures 6.1 cm from the jose juan. Otherwise, no acute finding is identified. Adi Carmen MD Liver Ultrasound 02/18/17 0000 Signed Impressions: Service Date/Time: Saturday, February 18, 2017 17:22 - CONCLUSION: 1. Hepatomegaly. 2. Cholelithiasis. There is some minimal fluid around the gallbladder. The gallbladder wall itself is not thickened. This should be correlated with any clinical or laboratory findings of cholecystitis. 3. Dilatation the common bile duct. The cause the dilatation is not seen. 4. Status post splenectomy. Adi Wylie MD Abdomen/Pelvis CT [id number]/17/[id number] Signed Impressions: Service Date/Time: Friday, February 17, 2017 22:59 - CONCLUSION: Extensive gastroesophageal varices , status post splenectomy. The solid organs are unremarkable. No evidence of bowel obstruction. Kidneys enhance normally. Gopi Reagan MD Head CT [id number]/[id number] Signed Impressions: Service Date/Time: Friday, February 17, 2017 22:53 - CONCLUSION: Normal examination. Gopi Reagan MD Cervical Spine CT 02/17/17 0000 Signed Impressions: Service Date/Time: Friday, February 17, 2017 22:53 - CONCLUSION: Normal examination. Gopi Reagan MD Objective Remarks Gen: Sedated on ventilator SKIN: Warm and dry, Jaundice noticed on face. EYEs: mild scleral icterus BL Lungs: CTAB, no crackles or wheezes Heart: NRRR, normal S1/S2, no murmur Abdomen: Soft, positive BS. No hepatomegaly or palpable masses MSK: No cyanosis or edema. +2 PD pulses BL (Diane Mcarthur MD, R1) A/P Assessment and Plan 51 yo male with h/o Gaucher Disease presenting with: (Diane Mcarthur MD, R1) Attending Attestation Patient seen and examined. Case reviewed and discussed with the resident team. Agree with plan of care as discussed with me and documented in the resident note. ENT and Pairer note reviewed as well. Extubation planned for today and fu with ENT for possible procedure on Saturday to evaluate the pharyngeal mass (Nika Mejia MD) Problem List: (1) Esophageal varices ICD Codes: I85.00 - Esophageal varices without bleeding Plan: Secondary to underlying liver disease (alcoholic versus Gaucher versus both). Noted on CT. - GI following, appreciate recommendations - Work up as below negative - Additional work-up including ceruloplasmin, A1AT, autoimmune hepatitis panel pending - EGD done on 02/19 to evaluate varices. Friable posterior hypopharynx mass was found during EGD procedure. Due to continued leak from the lesion pt was left intubated and transferred to [facility] [place]. ENT was consulted for further evaluation. -f/u pathology reports -Discussed care plan this am with community mental health social worker following Dr. Wheatley, ENT will be evaluating pt today. Possible extubation today or tomorrow if no further bleeding develops and pending ENT recommendations. -H/H thus far stable. will continue to monitor. -Resume Lactulose TID once pt is extubated Item Value Date Time Rapid Plasma Reagin NON-REACTIVE 02/18/17 1452 Hepatitis A IgM Antibody NEGATIVE 02/19/17 0800 Hepatitis B Surface Antigen NEGATIVE 02/19/17 0800 Hepatitis B Core IgM Antibody NEGATIVE 02/19/17 0800 Hepatitis C Antibody NEGATIVE 02/19/17 0800 Tumor Marker Alpha Fetoprotein 6.9 NG/ML 02/19/17 0800 (2) Gaucher disease ICD Codes: E75.22 - Gaucher disease Status: Chronic Plan: Reported h/o Gaucher disease, labs support this with mild anemia, thrombocytopenia Previously taking Cerezyme; per patient was discontinued 2 years ago by prior physician Macrocytosis, could be due to Gaucher disease or alcohol use - H/H has remained stable, latest 10.7/30.9 -continue to monitor - GI work-up as above (3) Altered mental status ICD Codes: R41.82 - Altered mental status, unspecified Status: Resolved Plan: Initially presented with disorientation by history and ED/EVAC report, now resolved A/w some nausea and 1 episode NBNB emesis Work-up CT abdomen/pelvis without evidence of acute pathology (see above), but does show extensive varices which may be indicative of either Gaucher disease or chronic alcohol use Troponin < 0.02 EKG normal sinus rhythm with no ST-T wave changes CBC with mild anemia and thrombocytopenia c/w known Gaucher disease Ammonia level 93 --> 163, --> 93 TSH wnl Alcohol, tylenol, and salicylate levels normal UDS positive for marijuana Reported h/o fall, exam benign, CT head negative for bleeding - Likely secondary to hepatic encephalopathy, see plan above - Offered psychiatry consult (had been seeing psychiatrist in [place], acute stressor with loss of granddaughter, new to [place]), patient declined, and in any case does not currently meet criteria for [place] or inpatient psychiatric admission. Continue to monitor - CIWA assessment scoring per protocol; will order meds if scores indicative of withdrawal though unlikely this episode was due to intoxication given low blood alcohol level (4) FEN/PPX Plan: Fluids: 84mls/hr Elecs: Monitor, replete PRN Nutrition: NPO DVT: SCIDs Code status: FULL CODE (Diane Mcarthur MD, R1) Problem Qualifiers (1) Esophageal varices: Qualified Codes: I85.10 - Secondary esophageal varices without bleeding (2) Altered mental status: Qualified Codes: R41.0 - Disorientation, unspecified Diane Mcarthur MD, R1 Feb 20, 2017 10:14 Nika Mejia MD Feb 20, 2017 13:00
--- NOTE | 2017-02-20 14:05 | HHI.CCPN ---
Subjective Remarks/Hospital Course 02/19: 51-year-old male with a medical history significant for Gaucher's disease status post previous splenectomy presented with nausea, vomiting and altered mental status. Patient was brought to the ER and kept as observation status by family medicine service. GI was consulted as CT abdomen pelvis revealed extensive gastroesophageal varices. Patient underwent EGD on 02/19 by GI and was noted to have a bleeding pharyngeal tumor which started oozing on getting contact with endoscope. Patient was noted to have significant gastroesophageal varices however no active bleeding noted from viruses or from stomach and duodenum. Antral biopsies taken. Patient was left intubated in view of bleeding from pharyngeal tumor which is to be evaluated by ENT. Patient was transferred to PACU and subsequently to [facility]. Critical care consult was requested by GI for vent management/critical care. An I evaluated the patient following his arrival to the ICU, he was sedated with propofol, orally intubated on mechanical ventilation. History was obtained by reviewing records and discussion with ICU/ PACU staff. 02/20: Remains sedated, orally intubated on mechanical ventilation. Objective Vital Signs Date Time Temp Pulse Resp B/P (MAP) Pulse Ox O2 Delivery O2 Flow Rate FiO2 02/20/17 13:00 66 15 118/57 (77) 98 02/20/17 12:43 35 02/20/17 04:00 98.3 02/19/17 14:30 Mechanical Ventilator Intake and Output 02/20/17 02/20/17 02/21/17 08:00 16:00 00:00 Intake Total 936 ml Output Total 1150 ml Balance -214 ml Result Diagram: 02/20/17 0641 02/20/17 0641 Other Results Laboratory Tests Test 02/19/17 15:00 Blood Gas Puncture Site LT RADIAL Blood Gas Patient Temperature 98.6 Blood Gas HCO3 21 mmol/L (22-26) Blood Gas Base Excess -3.9 mmol/L (-2-2) Blood Gas Oxygen Saturation 97 % (90-100) Arterial Blood pH 7.37 (7.380-7.420) Arterial Blood Partial Pressure CO2 36 mmHg (38-42) Arterial Blood Partial Pressure O2 167 mmHg (61-120) Arterial Blood Oxygen Content 15.4 Vol % (12.0-20.0) Arterial Blood Carboxyhemoglobin 1.2 % (0-4) Arterial Blood Methemoglobin 1.4 % (0-2) Blood Gas Hemoglobin 11.1 G/DL (12.0-16.0) Oxygen Delivery Device VENTILATOR Blood Gas Ventilator Setting AC,12,500,PEEP5 Blood Gas Inspired Oxygen 40 % Imaging Last Impressions Chest X-Ray 02/19/17 0000 Signed Impressions: Service Date/Time: Sunday, February 19, 2017 13:32 - CONCLUSION: Endotracheal tube distal tip measures 6.1 cm from the jose juan. Otherwise, no acute finding is identified. Adi Carmen MD Liver Ultrasound 02/18/17 0000 Signed Impressions: Service Date/Time: Saturday, February 18, 2017 17:22 - CONCLUSION: 1. Hepatomegaly. 2. Cholelithiasis. There is some minimal fluid around the gallbladder. The gallbladder wall itself is not thickened. This should be correlated with any clinical or laboratory findings of cholecystitis. 3. Dilatation the common bile duct. The cause the dilatation is not seen. 4. Status post splenectomy. Adi Wylie MD Abdomen/Pelvis CT [id number]/17/[id number] Signed Impressions: Service Date/Time: Friday, February 17, 2017 22:59 - CONCLUSION: Extensive gastroesophageal varices , status post splenectomy. The solid organs are unremarkable. No evidence of bowel obstruction. Kidneys enhance normally. Gopi Reagan MD Head CT [id number]/[id number] Signed Impressions: Service Date/Time: Friday, February 17, 2017 22:53 - CONCLUSION: Normal examination. Gopi Reagan MD Cervical Spine CT 02/17/17 0000 Signed Impressions: Service Date/Time: Friday, February 17, 2017 22:53 - CONCLUSION: Normal examination. Gopi Reagan MD Objective Remarks HEENT/ Neuro: Sedated, orally intubated, no pallor, no icterus, tongue/ mucosa moist Neck: No JVD Oropharynx: Evaluated using glide scope following neuromuscular blockade with ENT. Small polypoid friable mass just opposite the epiglottis on posterior pharyngeal wall noted which bleeds easily on contact. Chest/Pulm: on mech vent, good air entry bilaterally, no wheezing or crackles CVS: S1-S2 regular, no murmur GI/abdomen: soft, nontender, bowel sounds sluggish Extremities: warm bilaterally, no edema A/P Assessment and Plan 51-year-old male with: Bleeding pharyngeal polypoid tumor Acute respiratory failure on mechanical ventilation Gastroesophageal varices Suspected liver cirrhosis Gaucher's disease Plan: Neuro: Sedation with propofol, daily sedation vacation. Follow neuro status. Cardiovascular: Watch for hypotension, IV hydration Pulmonary: On mechanical ventilation. Vent bundle, bronchodilators as needed. Plan to extubate patient as discussed with her ENT - Dr. Cannon and will plan on discussing possibility of excision biopsy of polypoid mass in posterior laryngopharynx. GI/liver: Status post EGD. GI following for gastroesophageal masses with liver cirrhosis possibly secondary to Gaucher's disease. Renal/: IV hydration, strict intake output, monitor and replete electro lites , follow BUN/creatinine. ID: No antibiotics at this time. Heme: Follow CBC and coags. Transfuse to keep hemoglobin above 8 g percent. Patient is status post splenectomy. Prophylaxis: PPI/SCDs. Robby Wheatley MD Feb 20, 2017 14:05
[2017-02-20 16:30] LABS: ANA SCREEN NEG (NEG)
--- NOTE | 2017-02-20 18:09 | PD.AMA ---
Against Medical Advice Note Discharge Disposition: Against Medical Advice Pt Condition on Discharge: Guarded Recommended Treatment Course Recommend continue monitoring of posterior pharyngeal mass and respiratory status. Status post extubation on 02/20/2017 at 1500 hrs. AMA Statement Patient Thanh Yepez has decided to leave the hospital against medical advice. This patient has the capacity to refuse care and understands the risks of leaving, including permanent disability and/or , and has had an opportunity to ask questions about his condition. The patient has been informed that he may return for care at any time, and follow up has been arranged/ advised. The patient was alert and oriented 3, denied any suicidal or homicidal ideation or plans, but was able to tell us about his diagnosis, the proposed treatment plan, the alternatives to this treatment plan, and the risk of leaving the hospital AGAINST MEDICAL ADVICE. He should not be admitted back to the resident/teaching service. Roberto Carlos Engel MD, R3 Feb 20, 2017 18:09
[2017-02-22 05:40] LABS: MITOCHONDRIAL ABS LESS THAN 20.0 U (<=20.0)
== END 2017-02-20 20:18 | disposition left against medical advice (07) | DRG 441 ==
LOC: NEPE 20:39 → NEDA 23:12 → UNDOADMIN 23:12 → NEDA 02-18 00:07 → INTOOBSV 02-18 00:07 → N06B 02-18 01:00 → NEDA 02-18 01:00 → HIMN 02-19 14:03 → OBSVTOIN 02-19 15:18 → HIMN 02-19 15:25
PROVIDERS: ADMIT Family Medicine; ATTEND Family Medicine
PROC: 0DB68ZX Excision of Stomach, Via Natural or Artificial Opening Endoscopic, Diagnostic (ICD-10-PCS; principal; 2017-02-19 12:35)
DX: K72.90 Hepatic failure, unspecified without coma (principal); J96.00 Acute respiratory failure, unspecified whether with hypoxia or hypercapnia; I85.10 Secondary esophageal varices without bleeding; D69.6 Thrombocytopenia, unspecified; E75.22 Gaucher disease; R16.0 Hepatomegaly, not elsewhere classified; J98.11 Atelectasis; K76.6 Portal hypertension; D53.9 Nutritional anemia, unspecified; I86.4 Gastric varices; K74.60 Unspecified cirrhosis of liver; K80.20 Calculus of gallbladder without cholecystitis without obstruction; M10.9 Gout, unspecified; K29.70 Gastritis, unspecified, without bleeding; K21.9 Gastro-esophageal reflux disease without esophagitis; F10.10 Alcohol abuse, uncomplicated; Z90.81 Acquired absence of spleen; F12.90 Cannabis use, unspecified, uncomplicated; F17.200 Nicotine dependence, unspecified, uncomplicated; W01.0XXA Fall on same level from slipping, tripping and stumbling without subsequent striking against object, initial encounter; Y92.9 Unspecified place or not applicable; Z86.73 Personal history of transient ischemic attack (TIA), and cerebral infarction without residual deficits
CPT/HCPCS: 36600; 70450; 71010; 72125; 74177; 76705; 80053; 80074; 80307; 81001; 81256; 82103; 82105; 82140; 82390; 82550; 82607; 82728; 82805; 83520; 83540; 83550; 84443; 84484; 85007; 85014; 85018; 85027; 85610; 85730; 86038; 86255; 86592; 87641; 88305; 93005; 94002; 94003; 94640; 94664; 96360; G8987-GP; G8988-GP; J0330; J7030; Q9967